=== PATIENT | male | born 1945 | race Caucasian/White ===

== ENCOUNTER 2017-03-28 12:28 | Emergency (ER) | payer MEDICARE ==
[~2017-03-28] VITALS: Ht 147.3 cm; Wt 61.2 kg
--- NOTE | 2017-03-28 12:30 | NUR ---
ARRIVAL PT ARRIVED VIA WHEELCHAIR ACCOMPANIED BY CAREGIVER. PT IS IN NO DISTRESS AT THIS TIME. EDP NOTIFIED OF ARRIVAL.
[2017-03-28] MEDS ORDERED: LASIX IV STA (12:46)
--- NOTE | 2017-03-28 12:48 | ER.PDOC ---
General Chief Complaint: Requesting Medical Care Stated Complaint: SOB Time seen by MD: 12:45 Source: patient Exam Limitations: no limitations History of Present Illness Initial Comments sob Timing/Duration: 1 hour Severity: mild Prior Episodes/Possible Cause: no prior episodes Associated Symptoms: denies symptoms Prior symptoms/Treatment: Similar symptoms previous Allergies: Coded Allergies: Sulfa (Sulfonamide Antibiotics) (Verified Allergy, Unknown, 07/23/14) Family History Significant Family History: no pertinent family hx Review of Systems Constitutional: weakness Respiratory: shortness of breath Cardiovascular: denies chest pain Gastrointestinal: denies abdominal pain Genitourinary: denies discharge All Other Systems: Reviewed and Negative Physical Exam General Appearance: Anxious HEENT: Other (bruising l eye) Neck: Non-Tender, Full Range of Motion, Supple, Normal Inspection Respiratory: no respiratory distress Cardiovascular: Tachycardia Gastrointestinal: Normal Bowel Sounds, No Organomegaly, No Pulsatile Mass, Non Tender, Soft Extremities: Normal Range of Motion, Non-Tender, Normal Inspection, No Pedal Edema, No Calf Tenderness, Normal Capillary Refill 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 NML as Tested, No Motor/Sensory Deficits, Alert, Normal Mood/Affect, Oriented x 3 Skin: Normal Color, Warm/Dry Lymphatic: No Adenopathy Results/Orders Results/Orders Laboratory Tests Test 03/28/17 13:05 White Blood Count 9.7 10^3/uL (4.5-11.0) Red Blood Count 4.21 10^6/uL (4.50-5.90) Hemoglobin 12.5 g/dL (13.9-16.3) Hematocrit 39.9 % (37.0-53.0) Mean Corpuscular Volume 94.8 fL (78-100) Mean Corpuscular Hemoglobin 29.7 pg (26-34) Mean Corpuscular Hemoglobin Concent 31.3 g/dL (33-37) Red Cell Distribution Width 15.0 % (11.5-14.5) Platelet Count 281 10^3/uL (150-400) Mean Platelet Volume 9.5 fL (7.8-11.0) Neutrophils (%) (Auto) 79.3 % (41.0-85.0) Lymphocytes (%) (Auto) 12.0 % (24.0-44.0) Monocytes (%) (Auto) 6.4 % (5.0-12.0) Neutrophils # (Auto) 7.7 10^3/uL (1.8-7.7) Lymphocytes # (Auto) 1.2 10^3/uL (1.0-4.8) Monocytes # (Auto) 0.6 10^3/uL (0.3-0.8) Absolute Immature Granulocyte (auto 0.02 10^3 u/L (0-2) Eosinophils % 1.4 % (0.0-5.0) Basophils % 0.7 % (0.0-0.2) Basophils # 0.1 10^3/uL (0.0-0.1) Eosinophil Count 0.1 10^3/uL (0.0-0.2) Sodium Level 146 mmol/L (132-145) Potassium Level 4.2 mmol/L (3.6-5.2) Chloride Level 108.0 mmol/L (96-109) Carbon Dioxide Level 31.7 mmol/L (20.0-32) Anion Gap 10.5 Blood Urea Nitrogen 33 mg/dL (7-18) Creatinine 1.37 mg/dL (0.59-1.40) Estimated GFR () 61.8 (>/=60) BUN/Creatinine Ratio 24.0 Glucose Level 142 mg/dL (70-110) Calcium Level 9.0 mg/dL (8.4-10.5) Total Bilirubin 0.6 mg/dL (0.2-1.0) Aspartate Amino Transf (AST/SGOT) 58 U/L (0-35) Alanine Aminotransferase (ALT/SGPT) 117 U/L (12-78) Alkaline Phosphatase 126 U/L (50-136) Total Creatine Kinase 102 U/L (39-308) Creatine Kinase MB 1.4 ng/mL (0.5-3.6) Troponin I 0.05 ng/mL (0.00-0.05) Pro-B-Type Natriuretic Peptide 8068 pg/mL (0-125) Total Protein 7.2 g/dL (6.4-8.2) Albumin 3.0 g/dL (3.4-5.0) Globulin 4.2 Percent Immature Gran (Cell Imm) 0.20 % (0.00-0.50) Administered Medications Medications (Trade) Dose Ordered Sig/Isabel Route PRN Reason Start Time Stop Time Status Last Admin Dose Admin Sodium Chloride 1,000 ml @ 0 mls/hr Q0M ONCE IV 03/28/17 13:00 03/28/17 13:01 UNV 03/28/17 13:13 Furosemide (Lasix) 40 mg STAT STAT IV 03/28/17 12:46 03/28/17 12:47 UNV 03/28/17 13:14 Progress Progress bnp= [id number] cardiacs neg EKG/XRAY/CT/US EKG Comments: 104 afib XRAY: chest XRAY Comments: possible infiltrate Departure Time of Disposition: 14:29 Disposition: 01 HOME, SELF-CARE Impression: Primary Impression: Dyspnea Additional Impression: Bronchitis Condition: Stable Additional Instructions: noel calderon Problem Qualifiers ONORM TAYLOR Dr., MD Mar 28, 2017 12:48
[2017-03-28] MEDS ORDERED: NS 1000ML 1,000 ML IV ONE (13:00)
--- NOTE | 2017-03-28 13:03 | DIREP ---
PROCEDURE:CHEST 1 VIEW COMPARISON:[facility], CR, XRAY CHEST 2 VWS, 08/10/2015, 12:19 PM. INDICATIONS:SOB FINDINGS: LUNGS/PLEURA:Relatively shallow lung volumes with increased conspicuity of the bronchovascular structures. Vascular congestion not excluded. Increased density at the left base raises question of infiltrate. Minimal blunting of the left costophrenic angle suggests pleural effusion. VASCULATURE:Within normal limits. CARDIAC:The cardiac silhouette is prominent, but not definitely enlarged, given AP technique. JAMILA/MEDIASTINUM:No visible mass or adenopathy. BONES:No acute fracture. OTHER:No additional findings. CONCLUSION: 1. Increased density at the left base raises question of infiltrate. Minimal blunting of the left costophrenic angle suggests pleural effusion. Dictated by: Fracisco Lo M.D. On 03/28/2017 at 01:00 PM
[2017-03-28] MEDS ORDERED: LASIX ONE (13:04)
[2017-03-28] MEDS ORDERED: NS 1000ML 1,000 ML ONE (13:04)
[2017-03-28 13:11] LABS: BASOPHIL # 0.1 10^3/uL (0.0-0.1); BASOPHIL % 0.7 % (0.0-0.2); EOSINOPHIL # 0.1 10^3/uL (0.0-0.2); EOSINOPHIL % 1.4 % (0.0-5.0); HEMOGLOBIN 12.5 g/dL (13.9-16.3); LYMPHOCYTES # 1.2 10^3/uL (1.0-4.8); MEAN CELL HGB 29.7 pg (26-34); MEAN CELL HGB CONCENTRATION 31.3 g/dL (33-37); MEAN CORP VOLUME 94.8 fL (78-100); MEAN PLATELET VOLUME 9.5 fL (7.8-11.0); MONOCYTES # 0.6 10^3/uL (0.3-0.8); MONOCYTES % 6.4 % (5.0-12.0); NEUTROPHIL # 7.7 10^3/uL (1.8-7.7); NEUTROPHILS % 79.3 % (41.0-85.0); WHITE BLOOD CELL 9.7 10^3/uL (4.5-11.0)
[2017-03-28] MEDS ORDERED: ROCEPHIN 1,000 MG in NS 100ML 100 ML IV STA (13:46)
[2017-03-28 13:49] LABS: CARBON DIOXIDE 31.7 mmol/L (20.0-32)
[2017-03-28] MEDS ORDERED: NS 100ML 100 ML IV ONE (14:41)
[2017-03-28] MEDS ORDERED: ROCEPHIN ONE (14:42)
== END 2017-03-28 15:45 | disposition home or self-care (01) ==
LOC: ER 12:28
DX: J40 Bronchitis, not specified as acute or chronic (principal); R06.00 Dyspnea, unspecified; S05.12XA Contusion of eyeball and orbital tissues, left eye, initial encounter; R53.1 Weakness; Z88.2 Allergy status to sulfonamides; X58.XXXA Exposure to other specified factors, initial encounter; Y93.89 Activity, other specified; Y92.89 Other specified places as the place of occurrence of the external cause; Y99.8 Other external cause status
CPT/HCPCS: 36415; 71010; 80053; 82550; 82553; 83880; 84484; 85025; 85379; 93005; 96361; 96365; 96375; 99285; J0696 ×3; J1940; J7030; J7050

== ENCOUNTER 2018-06-13 21:40 | Inpatient (IN) | payer MEDICARE ==
[~2018-06-13] VITALS: Ht 147.3 cm; Wt 54.9 kg
[2018-06-13 21:53] VITALS: BP 171/84
[2018-06-13] MEDS ORDERED: SOLU-MEDROL IV STA (22:00)
[2018-06-13] MEDS ORDERED: DECADRON IH STA (22:00)
[2018-06-13] MEDS ORDERED: DUONEB 0.5 MG-3 MG/3 ML SOLN IH STA (22:00)
[2018-06-13] MEDS ORDERED: DECADRON ONE (22:02)
[2018-06-13] MEDS ORDERED: DUONEB 0.5 MG-3 MG/3 ML SOLN IH ONE (22:02)
--- NOTE | 2018-06-13 22:10 | ER.PDOC ---
General Chief Complaint: Dyspnea/Respdistress Stated Complaint: FEVER,CONGESTION Time seen by MD: 22:03 Source: other (caregiver) Exam Limitations: clinical condition History of Present Illness Initial Comments 73 year old white male with cough, shortness of breath for two days. +fever and increasing weakness. No nausea, no vomiting Timing/Duration: other (2 days) Severity: moderate Prior Episodes/Possible Cause: no prior episodes Associated Symptoms: cough Allergies: Coded Allergies: Sulfa (Sulfonamide Antibiotics) (Verified Allergy, Unknown, 07/23/14) Uncoded Allergies: CODE (Allergy, Unknown, 06/13/18) Past Medical History Medical History: congestive heart failure, COPD, diabetes Surgical History: no surgical history Social History Smoking: quit greater than 1 year Alcohol Use: none Drug Use: none Review of Systems Constitutional: fever, malaise, weakness EENTM: no symptoms reported Respiratory: see HPI, cough, orthopnea, shortness of breath Cardiovascular: no symptoms reported Gastrointestinal: no symptoms reported Genitourinary: no symptoms reported Musculoskeletal: no symptoms reported Skin: no symptoms reported Psychiatric/Neurological: no symptoms reported Endocrine: no symptoms reported Hematologic/Lymphatic: no symptoms reported Physical Exam General Appearance: No Apparent Distress, Cachetic, Thin HEENT: PERRL/EOMI, Normal ENT Inspection, TMs Normal, Pharynx Normal Neck: Non-Tender, Full Range of Motion, Supple Respiratory: crackles, rales Cardiovascular: Normal Peripheral Pulses, Regular Rate, Rhythm, No Edema, No JVD, No Murmur Gastrointestinal: Normal Bowel Sounds, No Organomegaly, No Pulsatile Mass, Non Tender Extremities: Normal Range of Motion, Non-Tender, Normal Inspection, No Pedal Edema, No Calf Tenderness, Normal Capillary Refill Neurologic/Psychiatric: Other (lethargic) Skin: Normal Color, Warm/Dry Lymphatic: No Adenopathy Results/Orders Results/Orders Laboratory Tests Test 06/13/18 22:20 06/13/18 22:40 White Blood Count 8.1 10^3/uL (4.5-11.0) Red Blood Count 3.67 10^6/uL (4.50-5.90) Hemoglobin 11.3 g/dL (13.9-16.3) Hematocrit 35.9 % (37.0-53.0) Mean Corpuscular Volume 97.8 fL (78-100) Mean Corpuscular Hemoglobin 30.8 pg (26-34) Mean Corpuscular Hemoglobin Concent 31.5 g/dL (33-37) Red Cell Distribution Width 16.3 % (11.5-14.5) Platelet Count 248 10^3/uL (150-400) Mean Platelet Volume 8.9 fL (7.8-11.0) Neutrophils (%) (Auto) 87.1 % (41.0-85.0) Lymphocytes (%) (Auto) 6.3 % (24.0-44.0) Monocytes (%) (Auto) 5.8 % (5.0-12.0) Neutrophils # (Auto) 7.0 10^3/uL (1.8-7.7) Lymphocytes # (Auto) 0.5 10^3/uL (1.0-4.8) Monocytes # (Auto) 0.5 10^3/uL (0.3-0.8) Absolute Immature Granulocyte (auto 0.01 10^3 u/L (0-2) Eosinophils % 0.0 % (0.0-5.0) Basophils % 0.7 % (0.0-0.2) Basophils # 0.1 10^3/uL (0.0-0.1) Eosinophil Count 0.0 10^3/uL (0.0-0.2) Prothrombin Time 11.0 SEC (9.8-11.9) Prothrombin Time INR (Non-Therap) 1.1 Activated Partial Thromboplast Time 34.2 SEC (24.67-30.72) Sodium Level 140 mmol/L (132-145) Potassium Level 4.0 mmol/L (3.6-5.2) Chloride Level 103.0 mmol/L (96-109) Carbon Dioxide Level 28.4 mmol/L (20.0-32) Anion Gap 12.6 Blood Urea Nitrogen 27 mg/dL (7-18) Creatinine 1.37 mg/dL (0.59-1.40) Estimated GFR () 61.5 (>/=60) BUN/Creatinine Ratio 19.0 Glucose Level 142 mg/dL (70-110) Calcium Level 9.1 mg/dL (8.4-10.5) Total Bilirubin 0.2 mg/dL (0.2-1.0) Aspartate Amino Transf (AST/SGOT) 25 U/L (0-35) Alanine Aminotransferase (ALT/SGPT) 22 U/L (12-78) Alkaline Phosphatase 84 U/L (50-136) Total Creatine Kinase 66 U/L (39-308) Troponin I 0.09 ng/mL (0.00-0.05) Pro-B-Type Natriuretic Peptide 88512 pg/mL (0-125) Total Protein 7.4 g/dL (6.4-8.2) Albumin 2.9 g/dL (3.4-5.0) Globulin 4.5 Percent Immature Gran (Cell Imm) 0.10 % (0.00-0.50) Differential Total Cells Counted 100 #CELLS Segmented Neutrophils 71 % (31-76) Band Neutrophils 15 % (2-6) Lymphocytes 6 % (25-36) Monocytes 2 % (3-9) Absolute Eosinophils (Manual) 2 % (1-4) Atypical Lymphocytes 4 % Administered Medications Medications (Trade) Dose Ordered Sig/Isabel Route PRN Reason Start Time Stop Time Status Last Admin Dose Admin Methylprednisolone Sodium Succinate (Solu-Medrol) 125 mg STAT STAT IV 06/13/18 22:00 06/13/18 22:03 DC 06/13/18 22:36 Albuterol/ Ipratropium (Duoneb 0.5 Mg-3 Mg/3 ml Soln) 3 ml STAT STAT IH 06/13/18 22:00 06/13/18 22:03 DC 06/13/18 22:11 Dexamethasone Sodium Phosphate (Decadron) 4 mg STAT STAT IH 06/13/18 22:00 06/13/18 22:03 DC 06/13/18 22:11 Ceftriaxone Sodium 1000 mg/ Sodium Chloride 100 ml @ 100 mls/hr OT STAT IV 06/13/18 22:46 06/13/18 23:45 06/13/18 22:52 Progress Progress lab reviewed with patient EKG/XRAY/CT/US EKG Comments: new onset atrial fibrillation Departure Time of Disposition: 23:28 Disposition: 09 ADMITTED INPATIENT Impression: Primary Impression: Congestive heart failure Additional Impression: Chronic obstructive pulmonary disease Condition: Stable Referrals: PCP,UNKNOWN (PCP) PRIMARY CARE PROVIDER Comments Admit Duration or Time Spent with Pa: 60 Problem Qualifiers Primary Impression: Congestive heart failure Heart failure type: systolic Heart failure chronicity: acute on chronic Qualified Codes: I50.23 - Acute on chronic systolic (congestive) heart failure Additional Impression: Chronic obstructive pulmonary disease COPD type: COPD with acute exacerbation Qualified Codes: J44.1 - Chronic obstructive pulmonary disease with (acute) exacerbation JON TOMLINSON MD Jun 13, 2018 22:10
--- NOTE | 2018-06-13 22:17 | PCM.EKG ---
[facility] Test Date: 2018-06-13 Test Time: 22:16:58 Pat Name: ALEXANDRE ORTIZ Department: Room: Gender: M Disability Examiner: HERNANDO : 1945 Requested By: JON TOMLINSON Order Number: [id number] Reading MD: Measurements Intervals [place] Rate: 108 P: TN: QRS: 35 QRSD: 90 T: 96 QT: 356 QTc: 477 Interpretive Statements Atrial fibrillation ST & T wave abnormality, consider lateral ischemia or digitalis effect Abnormal ECG No previous ECG available for comparison Please click the below link to view image of tracing.
[2018-06-13] MEDS ORDERED: SOLU-MEDROL ONE (22:29)
[2018-06-13 22:30] LABS: BASOPHIL # 0.1 10^3/uL (0.0-0.1); BASOPHIL % 0.7 % (0.0-0.2); HEMOGLOBIN 11.3 g/dL (13.9-16.3); LYMPHOCYTES # 0.5 10^3/uL (1.0-4.8); LYMPHOCYTES % 6.3 % (24.0-44.0); MEAN CELL HGB 30.8 pg (26-34); MEAN CELL HGB CONCENTRATION 31.5 g/dL (33-37); MEAN CORP VOLUME 97.8 fL (78-100); MEAN PLATELET VOLUME 8.9 fL (7.8-11.0); MONOCYTES # 0.5 10^3/uL (0.3-0.8); MONOCYTES % 5.8 % (5.0-12.0); NEUTROPHILS % 87.1 % (41.0-85.0); RED CELL DISTRIBUTION WIDTH 16.3 % (11.5-14.5); WHITE BLOOD CELL 8.1 10^3/uL (4.5-11.0)
--- NOTE | 2018-06-13 22:32 | DIREP ---
PROCEDURE:CHEST 1 VIEW COMPARISON:[facility], CR, XRAY CHEST SINGLE VW, 03/28/2017, 12:57 PM. INDICATIONS:shortness of breath FINDINGS: LUNGS/PLEURA:There are interstitial changes bilaterally with scattered hazy airspace changes bilaterally. More confluent density at the left base. Small left pleural effusion is possible. VASCULATURE:Within normal limits. CARDIAC:No cardiomegaly. JAMILA/MEDIASTINUM:No visible mass or adenopathy. BONES:No acute fracture. OTHER:No additional findings. CONCLUSION: 1. Findings are suspicious for acute pneumonia/pneumonitis. Dictated by: Fracisco Lo M.D. on 06/13/2018 at 10:30 PM
[2018-06-13 22:45] VITALS: BP 160/85
[2018-06-13] MEDS ORDERED: ROCEPHIN 1,000 MG in NS 100ML 100 ML IV STA (22:46)
[2018-06-13] MEDS ORDERED: ROCEPHIN ONE (22:50)
[2018-06-13] MEDS ORDERED: NS 100ML 100 ML IV ONE (22:50)
[2018-06-13 22:53] LABS: CALCIUM 9.1 mg/dL (8.4-10.5); CARBON DIOXIDE 28.4 mmol/L (20.0-32)
[2018-06-13 23:07] LABS: BAND NEUTROPHILS 15 % (2-6); EOSINOPHIL 2 % (1-4); LYMPHOCYTE 6 % (25-36); MONOCYTE 2 % (3-9); SEGMENTED NEUTROPHILS 71 % (31-76)
[2018-06-13 23:29] LABS: ABG PCO2 38.9 mmHg (35.0-45.0); ABG PH 7.415 (7.350-7.450); HCO3act 24.4 mmol/L (22.0-26.0); pO2 50.5 mmHg (75.0-100.0)
[2018-06-13] MEDS ORDERED: LASIX IV STA (23:30)
[2018-06-13] MEDS ORDERED: LISI40TA PO (23:31)
[2018-06-13] MEDS ORDERED: METO-237 PO (23:31)
[2018-06-13] MEDS ORDERED: OXYB5TAB7 PO (23:31)
[2018-06-13] MEDS ORDERED: APIX5TAB PO (23:31)
[2018-06-13] MEDS ORDERED: FURO40TA4 PO (23:31)
[2018-06-13] MEDS ORDERED: IPRA12.9 IH (23:31)
[2018-06-13] MEDS ORDERED: CHOL500045 PO (23:31)
[2018-06-13] MEDS ORDERED: FLUT1DIS3 IH (23:31)
[2018-06-13] MEDS ORDERED: PRAV20TA PO (23:31)
[2018-06-13] MEDS ORDERED: TERA2CAP3 PO (23:31)
[2018-06-13] MEDS ORDERED: FLUO10CA7 PO (23:31)
[2018-06-13] MEDS ORDERED: METF10007 PO (23:31)
[2018-06-13] MEDS ORDERED: FLUT16SP (23:31)
--- NOTE | 2018-06-13 23:34 | NUR ---
LACTIC ACID LACTIC ACID 2.1 PATIENT BEING ADMITTED TO MED SURG. DR. TOMLINSON REPORTS NO NEED FOR ANOTHER REPEAT LACTIC ACID.
[2018-06-13 23:45] VITALS: BP 146/90
--- NOTE | 2018-06-13 23:50 | NUR ---
BM PATIENT HAD BM REMOVED PANTS AND BRIEF AND CLEANED PATIENT. LARGE SOFT BROWN STOOL.
[2018-06-14] MEDS ORDERED: LASIX ONE (00:11)
[2018-06-14 00:15] VITALS: BP 163/81
--- NOTE | 2018-06-14 00:30 | NUR ---
ADMIT PATIENT TAKEN TO ROOM 328 VIA WHEELCHAIR CAREGIVER PRESENT. TRANSFERRED TO BED AND POSITIONED FOR COMFORT. UGALDE TO GRAVITY. REPORT GIVEN TO ELA DHILLON RELINQUISHED CARE.
[2018-06-14 00:54] LABS: BILIRUBIN,URINE NEGATIVE (NEGATIVE); UROBILINOGEN,URINE NORMAL (NEGATIVE)
[2018-06-14 01:04] LABS: APPEARANCE,URINE CLOUDY (CLEAR); UA COLOR YELLOW (YELLOW)
--- NOTE | 2018-06-14 01:43 | NUR ---
Pt admitted to MS via @ 0039. Pt and family oriented to room and floor. Vitals obtained. Admission assessment completed and charted. Tele #1 placed on pt. No complaints of pain or discomfort voiced. Call light with in reach.
[2018-06-14] MEDS: DUONEB 0.5 MG-3 MG/3 ML SOLN IH SCH ×4 (02:34→21:56)
--- NOTE | 2018-06-14 02:45 | NUR ---
Pt's gown and pad was wet. Pagan cath leaking. @cc inserted into bulb
[2018-06-14 04:45] VITALS: BP 142/79
--- NOTE | 2018-06-14 04:55 | NUR ---
Pt attempting to get out of bed. Pt repositioned for comfort. No further leaking noted from louis cath. Call light with in reach. Bed alarm active
[2018-06-14] MEDS: SOLU-MEDROL IV SCH ×2 (05:25→06:00)
[2018-06-14] MEDS ORDERED: DUONEB 0.5 MG-3 MG/3 ML SOLN IH SCH (06:00)
--- NOTE | 2018-06-14 06:41 | PCM.HP ---
History of Present Illness History of Present Illness 73-year-old male with past medical history of chronic systolic CHF, COPD, and diabetes mellitus who lives at home but has a 24-hour marketing director assisted living. He presented to the ER with a 2 day duration of cough and shortness of breath associated with fever and weakness. He denied any nausea or vomiting. Chest x-ray done in the ER was concerning for possible pneumonia. However patient did have a proBNP level of more than 50,000. He sounded very coarse with his breath sounds. The ER called me to admit the patient for treatment of pneumonia and possible CHF. At the time of my evaluation, the patient was already in the yoder asleep. He had received Lasix in the ER with achievement of good diuresis. He appears to feel better now. Nursing tells me that he was confused and had tried to pull out his louis. However he is calm now. His marketing director assisted living has gone home. Allergies: Sulfa Past medical history: CHF, COPD, and diabetes, Past surgical history: None Family history history: Patient smokes. However he quit about a year ago. Denies alcohol Denies street drugs Patient believes here in [place] alone, but has a marketing director assisted living that takes care of him 24 hours. Travel Hx EBOLA RISK:Travel to/contact w: No Is pt experiencing any Ebola s: No Review of Systems Constitutional: Fever, Chills; No: Sweats, Weakness, Malaise Eyes: No: Pain, Vision change, Conjunctivae inflammation, Eyelid inflammation, Redness ENT: No: Ear pain, Ear discharge, Nose pain, Nose discharge, Nose congestion, Mouth pain, Mouth swelling, Throat pain, Throat swelling, Other Respiratory: Cough, Shortness of breath; No: Dry, Wheezing, Hemoptysis, Pleuritic Pain, Sputum Cardiovascular: No: Chest Pain, Palpitations, Orthopnea, Paroxysmal Noc. Dyspnea, Edema, Lt Headedness Gastrointestinal: No: Nausea, Vomiting, Abdominal Pain, Diarrhea, Constipation , Melena, Hematochezia Genitourinary: No Dysuria, No Frequency, No Incontinence, No Hematuria, No Retention Musculoskeletal: No: neck pain, shoulder pain, arm pain, back pain, hand pain, leg pain, foot pain Skin: No: Rash, Lesions, Jaundice, Bruising Neurological: Confusion; No: Weakness, Numbness, Incoordination, Change in speech, Seizures Allergies: Coded Allergies: Sulfa (Sulfonamide Antibiotics) (Verified Allergy, Unknown, 07/23/14) codeine (Verified Allergy, Unknown, 06/14/18) Scheduled Apixaban (Eliquis), 5 MG PO DAILY24, (Reported) Cholecalciferol (Vitamin D3) (Vitamin D), 5,000 UNIT PO Q7D, (Reported) Fluoxetine Hcl (Fluoxetine Hcl), 1 CAP PO DAILY, (Reported) Fluticasone/Salmeterol (Advair 250-50 Diskus), 1 PUFF IH BID, (Reported) Furosemide (Furosemide), 1 TAB PO PRN, (Reported) Lisinopril (Lisinopril), 1 TAB PO DAILY, (Reported) Metformin Hcl (Metformin Hcl), 1 TAB PO BID, (Reported) Metoprolol Succinate (Metoprolol Succinate), 1 TAB PO DAILY, (Reported) Oxybutynin Chloride (Oxybutynin Chloride), 1 TAB PO BID, (Reported) Pravastatin Sodium (Pravachol), 1 TAB PO HS, (Reported) Terazosin Hcl (Terazosin Hcl), 0.5 CAP PO HS, (Reported) Scheduled PRN Fluticasone Propionate (Fluticasone Propionate), 1 SPR NA HS PRN for CONGESTION, (Reported) Ipratropium [place] (Atrovent Hfa), 2 PUFF IH Q6HR PRN for SHORTNESS OF BREATH, (Reported) VTE VTE Risk Total Score: >5 VTE Risk Score VTE Risk: Score 0-1 = Low Risk (Aggressive mobilization; early ambulation; no VTE prophylaxis required) Score 2: Moderate Risk (Intermittent/Pneumatic Compression Device OR Lovenox/Heparin/Coumadin) Score 3-4: High Risk (Intermittent/Pneumatic Compression Device AND Lovenox/Heparin/Coumadin) Score > or =5: Highest Risk (Intermittent/Pneumatic Compression Device AND Lovenox/Heparin/Coumadin) VTE VTE Present on Admission: No Currently receiving anticoagul: Yes VTE Risk Total Score: >5 Exam Vital Signs Vital Signs Date Time Temp Pulse Resp B/P (MAP) Pulse Ox O2 Delivery O2 Flow Rate FiO2 06/14/18 04:45 98.8 99 20 142/79 (100) 91 Nasal [place]ula 2.00 98.8 Current Medications Medications (Trade) Dose Ordered Sig/Isabel PRN Reason Start Time Stop Time Status Last Admin Albuterol/ Ipratropium (Duoneb 0.5 Mg-3 Mg/3 ml Soln) 3 ml RTQ6 06/14/18 03:00 07/14/18 02:59 06/14/18 02:34 Methylprednisolone Sodium Succinate (Solu-Medrol) 60 mg Q8HR 06/14/18 05:00 06/15/18 11:00 06/14/18 05:25 Vital Signs Date Time Temp Pulse Resp B/P (MAP) Pulse Ox O2 Delivery O2 Flow Rate FiO2 06/14/18 04:45 98.8 99 20 142/79 (100) 91 Nasal [place] 2.00 98.8 Allergies Coded Allergies Sulfa (Sulfonamide Antibiotics) (Verified Allergy, Unknown, 07/23/14) codeine (Verified Allergy, Unknown, 06/14/18) I & O 06/13/18 21:40 Thru 06/14/18 03:25 Output Total 900 ml Balance -900 ml Current Medications Medications (Trade) Dose Ordered Sig/Isabel Route Start Time Stop Time Status Last Admin Dose Admin Methylprednisolone Sodium Succinate (Solu-Medrol) 125 mg STAT STAT IV 06/13/18 22:00 06/13/18 22:03 DC 06/13/18 22:36 Albuterol/ Ipratropium (Duoneb 0.5 Mg-3 Mg/3 ml Soln) 3 ml STAT STAT IH 06/13/18 22:00 06/13/18 22:03 DC 06/13/18 22:11 Dexamethasone Sodium Phosphate (Decadron) 4 mg STAT STAT IH 06/13/18 22:00 06/13/18 22:03 DC 06/13/18 22:11 Ceftriaxone Sodium 1000 mg/ Sodium Chloride 100 ml @ 100 mls/hr OT STAT IV 06/13/18 22:46 06/13/18 23:45 DC 06/13/18 22:52 Methylprednisolone Sodium Succinate (Solu-Medrol) 60 mg Q8HR IV 06/14/18 05:00 06/15/18 11:00 06/14/18 05:25 Furosemide (Lasix) 40 mg STAT STAT IV 06/13/18 23:30 06/13/18 23:36 DC 06/14/18 00:11 Albuterol/ Ipratropium (Duoneb 0.5 Mg-3 Mg/3 ml Soln) 3 ml RTQ6 IH 06/14/18 03:00 07/14/18 02:59 06/14/18 02:34 Laboratory Tests 06/13/18 21:54: Blood Gas Sample Site RT RADIAL ARTERY, Blood Gas pH 7.415, Blood Gas PCO2 38.9 , Blood Gas PO2 50.5L, Blood Gas HCO3 24.4, Blood Gas Base Excess 0.0, Ben Test POSITIVE, Arterial Blood Oxygen Saturation 83.9L, Deoxyhemoglobin 15.9H, Carboxyhemoglobin 1.0, Methemoglobin 0.4, Total Hemoglobin 12.0L, Total Oxygen Concentration 14.0, Lactic Acid (Blood Gas) 2.1*H, Oxygen Delivery Method (LAB) RA, FiO2 21, Bicarbonate 25.6 06/13/18 22:20: White Blood Count 8.1, Red Blood Count 3.67L, Hemoglobin 11.3L, Hematocrit 35.9L , Mean Corpuscular Volume 97.8, Mean Corpuscular Hemoglobin 30.8, Mean Corpuscular Hemoglobin Concent 31.5L, Red Cell Distribution Width 16.3H, Platelet Count 248, Mean Platelet Volume 8.9, Neutrophils (%) (Auto) 87.1H, Lymphocytes (%) (Auto) 6.3*L, Monocytes (%) (Auto) 5.8, Neutrophils # (Auto) 7.0 , Lymphocytes # (Auto) 0.5L, Monocytes # (Auto) 0.5, Absolute Immature Granulocyte (auto 0.01, Eosinophils % 0.0, Basophils % 0.7H, Basophils # 0.1, Eosinophil Count 0.0, Prothrombin Time 11.0, Prothrombin Time INR (Non-Therap) 1.1, Activated Partial Thromboplast Time 34.2, Sodium Level 140, Potassium Level 4.0, Chloride Level 103.0, Carbon Dioxide Level 28.4, Anion Gap 12.6, Blood Urea Nitrogen 27H, Creatinine 1.37, Estimated GFR () 61.5 , BUN/Creatinine Ratio 19.0, Glucose Level 142H, Calcium Level 9.1, Total Bilirubin 0.2, Aspartate Amino Transf (AST/SGOT) 25, Alanine Aminotransferase ( ALT/SGPT) 22, Alkaline Phosphatase 84, Total Creatine Kinase 66, Troponin I 0.09H, Pro-B-Type Natriuretic Peptide 20966X, Total Protein 7.4, Albumin 2.9L, Globulin 4.5, Percent Immature Gran (Cell Imm) 0.10 06/13/18 22:40: Differential Total Cells Counted 100, Segmented Neutrophils 71, Band Neutrophils 15H, Lymphocytes 6L, Monocytes 2L, Absolute Eosinophils (Manual) 2, Atypical Lymphocytes 4 06/14/18 00:48: Urine Collection Type CCMS, Urine Color YELLOW, Urine Appearance CLOUDYH, Urine Bilirubin NEGATIVE, Urine Ketones NEGATIVE, Urine Specific [place] 1.020, Urine pH 5, Urine Protein 100 mg/dLH, Urine Urobilinogen NORMAL, Urine Nitrate NEGATIVE, Urine Leukocyte Esterase NEGATIVE, Urine Blood 150 3+H, Urine RBC NONE SEEN, Urine WBC 0-2, Urine Squamous Epithelial Cells FEW, Urine Amorphous Sediment LARGE, Urine Bacteria RARE, Urine Glucose NORMAL PATIENT NAME: ALEXANDRE ORTIZ MR#: [id number] : 1945 LOCATION: ER ROOM#: BED: SEX: M AGE: 73 SERVICE DATE: 06/13/182139 ORDERING PHYSICIAN: JON TOMLINSON MD RAD#: [id number] ACCESSION NUMBER(s): [id number] PROCEDURE: XR CHEST 1V EXAM DATE: 06/13/182202 cc: FRACISCO LO MD; JON TOMLINSON MD / CC: FRACISCO LO MD; JON TOMLINSON MD PROCEDURE:CHEST 1 VIEW COMPARISON:[facility], CR, XRAY CHEST SINGLE VW, 03/28/2017, 12:57 PM. INDICATIONS:shortness of breath FINDINGS: LUNGS/PLEURA:There are interstitial changes bilaterally with scattered hazy airspace changes bilaterally. More confluent density at the left base. Small left pleural effusion is possible. VASCULATURE:Within normal limits. CARDIAC:No cardiomegaly. JAMILA/MEDIASTINUM:No visible mass or adenopathy. BONES:No acute fracture. OTHER:No additional findings. CONCLUSION: 1. Findings are suspicious for acute pneumonia/pneumonitis. Dictated by: Fracisco Lo M.D. on 06/13/2018 at 10:30 PM General Appearance: Alert, No acute distress, mild distress HEENT: Atraumatic, PERRLA Respiratory: Other (Harsh breath sounds in joelle lungs) Cardiovascular: Regular rate, Normal S1, Normal S2 Abdominal: Normal bowel sounds, Soft, No tenderness Extremities: No clubbing, No edema Skin: No rash, No lesions Neuro: Normal speech, Other (confused) Assessment/Plan Assessment/Plan Assessment/Plan Present word pneumonia Acute on chronic systolic CHF History of COPD Diabetes mellitus Mild normocytic anemia 11.3 Lymphopenia 6.3 Hyperglycemia 142 ProBNP 52,118 Slightly elevated troponin 0.09 Hypoalbuminemia 2.9 Patient History: Throat cancer 32 FATHER Unknown Plan Admit patient to general medical floor. I agree with coverage for community acquired pneumonia with Rocephine and Zithromax. Mucinex, DuoNeb's, oxygen when necessary Follow Blood and Ur cx done in the ED Lasix 40 mg IV twice a day The patient received Solu-Medrol 125 mg in the ER. We'll go ahead and do two more doses of Solu-Medrol and stop, wheezing not a major component of this presentation. I agree with placement of Louis for monitoring of intake and outputs. Hyperglycemic protocol. A1C in the am Rechk ProBNP tmr and consider decreasing lasix dosing tmr GI prophylaxis DVT prophylaxis. ANA YOUNG DO Jun 14, 2018 06:41
[2018-06-14] MEDS ORDERED: ZOFRAN IV PRN (07:30)
[2018-06-14] MEDS ORDERED: DUONEB 0.5 MG-3 MG/3 ML SOLN IH PRN (07:30)
[2018-06-14] MEDS ORDERED: ZITHROMAX 500 MG in NS 250ML 250 ML IV ONE (07:30)
[2018-06-14] MEDS: HUMULIN R SQ SCH ×3 (07:30→20:46)
[2018-06-14] MEDS ORDERED: ROCEPHIN 1,000 MG in NS 100ML 100 ML IV SCH ×2 (07:30→21:00)
[2018-06-14] MEDS ORDERED: DEXTROSE 50%-WATER SYRINGE IV PRN (07:30)
[2018-06-14] MEDS ORDERED: VITAMIN D PO SCH (07:30)
[2018-06-14] MEDS ORDERED: NS 100ML 100 ML IV ONE (07:38)
[2018-06-14] MEDS: ELIQUIS PO SCH ×2 (07:44→08:40)
[2018-06-14] MEDS: MUCINEX PO SCH ×2 (08:39→20:55)
[2018-06-14] MEDS: PROZAC PO SCH (08:39)
[2018-06-14] MEDS: TOPROL XL PO SCH (08:39)
[2018-06-14] MEDS: PROTONIX PO SCH (08:40)
[2018-06-14] MEDS: DITROPAN PO SCH ×2 (08:40→20:55)
[2018-06-14] MEDS ORDERED: SOLU-MEDROL IV SCH (09:00)
[2018-06-14] MEDS ORDERED: LOVENOX SQ SCH (09:00)
[2018-06-14 09:10] VITALS: BP 159/85
[2018-06-14] MEDS: LASIX IV SCH (10:00)
[2018-06-14 15:17] VITALS: BP 142/74
[2018-06-14 19:16] VITALS: BP 131/68
--- NOTE | 2018-06-14 19:36 | NUR ---
report received report from offgoing shift
[2018-06-14] MEDS: LIPITOR PO SCH (20:55)
[2018-06-14] MEDS: HYTRIN PO SCH (20:55)
[2018-06-15] VITALS (22 sets, daily range): BP systolic 127–172; BP diastolic 58–112
[2018-06-15] MEDS: DUONEB 0.5 MG-3 MG/3 ML SOLN IH SCH ×4 (03:36→21:18)
[2018-06-15 05:59] LABS: HEMOGLOBIN 10.5 g/dL (13.9-16.3); LYMPHOCYTES # 0.6 10^3/uL (1.0-4.8); MEAN CELL HGB 30.3 pg (26-34); MEAN CELL HGB CONCENTRATION 31.4 g/dL (33-37); MEAN CORP VOLUME 96.5 fL (78-100); MEAN PLATELET VOLUME 9.3 fL (7.8-11.0); MONOCYTES # 0.6 10^3/uL (0.3-0.8); MONOCYTES % 3.8 % (5.0-12.0); NEUTROPHIL # 13.9 10^3/uL (1.8-7.7); RED CELL DISTRIBUTION WIDTH 15.7 % (11.5-14.5); WHITE BLOOD CELL 15.1 10^3/uL (4.5-11.0)
[2018-06-15 06:43] LABS: CALCIUM 8.4 mg/dL (8.4-10.5); CARBON DIOXIDE 30.4 mmol/L (20.0-32)
[2018-06-15] MEDS: HUMULIN R SQ SCH ×4 (07:30→21:00)
[2018-06-15 08:10] LABS: BAND NEUTROPHILS 16 % (2-6); LYMPHOCYTE 3 % (25-36); SEGMENTED NEUTROPHILS 76 % (31-76)
[2018-06-15 08:11] LABS: EOSINOPHIL 1 % (1-4); MONOCYTE 3 % (3-9)
[2018-06-15] MEDS: TOPROL XL PO SCH (08:23)
[2018-06-15] MEDS: PROZAC PO SCH (08:24)
[2018-06-15] MEDS: MUCINEX PO SCH ×2 (08:24→21:00)
[2018-06-15] MEDS: LASIX IV SCH (08:24)
[2018-06-15] MEDS: PROTONIX PO SCH (08:24)
[2018-06-15] MEDS: DITROPAN PO SCH ×2 (08:24→21:00)
[2018-06-15] MEDS ORDERED: ZITHROMAX PO SCH (09:00)
[2018-06-15] MEDS ORDERED: ROCEPHIN 1,000 MG in NS 100ML 100 ML IV SCH (10:00)
[2018-06-15] MEDS ORDERED: NS 100ML 100 ML IV ONE ×2 (10:23→23:10)
[2018-06-15] MEDS ORDERED: POTASSIUM CHLORIDE PO STA (13:58)
[2018-06-15] MEDS ORDERED: BUMINATE 25% IV STA (13:59)
[2018-06-15] MEDS ORDERED: KLOR-CON 10 PO SCH (14:00)
--- NOTE | 2018-06-15 14:12 | PRM.PN ---
Subjective Subjective Date: Jun 15, 2018 Time: 14:05 Subjective Patient is seen in the yoder resting quietly in bed watching TV. His boiler mechanic was at his bedside. Patient says he feels a lot better. He was able to dump about 1500 mL of urine in the past 3 hours. However patient urine remains christopher colored. Patient has no new complaints today. He continues to wheeze slightly in joelle lungs Patient History: Throat cancer 32 FATHER Unknown Objective Vitals and I/O Vital Sign - Last 24 Hours 06/14/18 06/14/18 06/14/18 06/14/18 15:03 15:10 15:17 19:16 Temp 97.8 97.8 Pulse 86 85 86 75 Resp 24 24 14 18 B/P (MAP) 142/74 (96) 131/68 (89) Pulse Ox 98 97 99 97 O2 Delivery Nasal Canula Nasal Canula O2 Flow Rate 2.50 2.00 06/14/18 06/14/18 06/14/18 06/14/18 19:56 21:56 21:57 22:00 Pulse 79 79 81 Resp 16 16 16 Pulse Ox 96 96 97 O2 Delivery Nasal Cannula Nasal Cannula O2 Flow Rate 2.00 2.00 FiO2 28 06/15/18 06/15/18 06/15/18 06/15/18 00:00 03:38 03:42 04:12 Temp 97.8 97.9 97.8 97.9 Pulse 111 90 92 96 Resp 18 B/P (MAP) 141/58 (85) 127/60 (82) Pulse Ox 94 97 99 100 O2 Delivery Nasal Canula Nasal Canula O2 Flow Rate 2.00 2.00 06/15/18 06/15/18 06/15/18 06/15/18 07:30 07:30 08:23 08:24 Temp 97.8 97.8 Pulse 90 90 Resp 18 B/P (MAP) 145/80 (101) 145/80 145/80 Pulse Ox 100 O2 Delivery Nasal Cannula Nasal Canula O2 Flow Rate 2.00 2.00 06/15/18 06/15/18 06/15/18 06/15/18 09:33 09:35 09:35 10:20 Pulse 90 90 90 90 Resp 18 18 18 Pulse Ox 100 100 100 100 O2 Delivery Nasal Cannula Nasal Cannula O2 Flow Rate 2.00 1.00 FiO2 28 18 13:12 Temp 98.8 98.8 Pulse 82 Resp 18 B/P (MAP) 143/62 (89) Pulse Ox 95 O2 Delivery Nasal Canula O2 Flow Rate 2.00 Intake and Output 06/14/18 06/14/18 06/15/18 15:00 23:00 07:00 Intake Total 250 ml 250 ml Output Total 720 ml 240 ml Balance -470 ml 10 ml Laboratory Tests Test 06/15/18 05:35 06/15/18 07:06 White Blood Count 15.1 10^3/uL Red Blood Count 3.46 10^6/uL Hemoglobin 10.5 g/dL Hematocrit 33.4 % Mean Corpuscular Volume 96.5 fL Mean Corpuscular Hemoglobin 30.3 pg Mean Corpuscular Hemoglobin Concent 31.4 g/dL Red Cell Distribution Width 15.7 % Platelet Count 243 10^3/uL Mean Platelet Volume 9.3 fL Neutrophils (%) (Auto) 92.0 % Lymphocytes (%) (Auto) 4.0 % Monocytes (%) (Auto) 3.8 % Neutrophils # (Auto) 13.9 10^3/uL Lymphocytes # (Auto) 0.6 10^3/uL Monocytes # (Auto) 0.6 10^3/uL Absolute Immature Granulocyte (auto 0.03 10^3 u/L Eosinophils % 0.0 % Basophils % 0.0 % Basophils # 0.0 10^3/uL Eosinophil Count 0.0 10^3/uL Sodium Level 139 mmol/L Potassium Level 3.2 mmol/L Chloride Level 101.0 mmol/L Carbon Dioxide Level 30.4 mmol/L Anion Gap 10.8 Blood Urea Nitrogen 34 mg/dL Creatinine 1.28 mg/dL Estimated GFR () 66.5 BUN/Creatinine Ratio 26.0 Glucose Level 98 mg/dL Calcium Level 8.4 mg/dL Total Bilirubin 0.3 mg/dL Aspartate Amino Transf (AST/SGOT) 25 U/L Alanine Aminotransferase (ALT/SGPT) 20 U/L Alkaline Phosphatase 64 U/L Pro-B-Type Natriuretic Peptide 98256 pg/mL Total Protein 6.9 g/dL Albumin 2.5 g/dL Globulin 4.4 Percent Immature Gran (Cell Imm) 0.20 % Differential Total Cells Counted 100 #CELLS Segmented Neutrophils 76 % Band Neutrophils 16 % Lymphocytes 3 % Monocytes 3 % Absolute Eosinophils (Manual) 1 % Atypical Lymphocytes 1 % Current Medications Medications (Trade) Dose Ordered Sig/Isabel Route PRN Reason Start Time Stop Time Status Last Admin Dose Admin Methylprednisolone Sodium Succinate (Solu-Medrol) 125 mg STAT STAT IV 06/13/18 22:00 06/13/18 22:03 DC 06/13/18 22:36 Albuterol/ Ipratropium (Duoneb 0.5 Mg-3 Mg/3 ml Soln) 3 ml STAT STAT IH 06/13/18 22:00 06/13/18 22:03 DC 06/13/18 22:11 Dexamethasone Sodium Phosphate (Decadron) 4 mg STAT STAT IH 06/13/18 22:00 06/13/18 22:03 DC 06/13/18 22:11 Albuterol/ Ipratropium (Duoneb 0.5 Mg-3 Mg/3 ml Soln) 3 ml STK-MED ONCE IH 06/13/18 22:02 06/13/18 22:04 DC Dexamethasone Sodium Phosphate (Decadron) 4 mg STK-MED ONCE .ROUTE 06/13/18 22:02 06/13/18 22:04 DC Methylprednisolone Sodium Succinate (Solu-Medrol) 125 mg STK-MED ONCE .ROUTE 06/13/18 22:29 06/13/18 22:31 DC Ceftriaxone Sodium 1000 mg/ Sodium Chloride 100 ml @ 100 mls/hr OT STAT IV 06/13/18 22:46 06/13/18 23:45 DC 06/13/18 22:52 Sodium Chloride 100 ml @ ud STK-MED ONCE IV 06/13/18 22:50 06/13/18 22:52 DC Ceftriaxone Sodium (Rocephin) 1,000 mg STK-MED ONCE .ROUTE 06/13/18 22:50 06/13/18 22:52 DC Methylprednisolone Sodium Succinate (Solu-Medrol) 60 mg Q8HR IV 06/14/18 05:00 06/14/18 07:12 DC 06/14/18 05:25 Albuterol/ Ipratropium (Duoneb 0.5 Mg-3 Mg/3 ml Soln) 3 ml RTQ6 IH 06/14/18 06:00 06/14/18 06:00 DC Furosemide (Lasix) 40 mg STAT STAT IV 06/13/18 23:30 06/13/18 23:36 DC 06/14/18 00:11 Albuterol/ Ipratropium (Duoneb 0.5 Mg-3 Mg/3 ml Soln) 3 ml RTQ6 IH 06/14/18 03:00 07/14/18 02:59 06/15/18 09:33 Furosemide (Lasix) 40 mg STK-MED ONCE .ROUTE 06/14/18 00:11 06/14/18 00:13 DC Methylprednisolone Sodium Succinate (Solu-Medrol) 40 mg Q12HR IV 06/14/18 09:00 06/16/18 09:01 06/14/18 09:11 Acetaminophen (Tylenol) 1,000 mg Q6H PRN PO PAIN MILD 06/14/18 07:30 07/14/18 07:29 Ondansetron HCl (Zofran) 4 mg Q4H PRN IV NAUSEA / VOMITING 06/14/18 07:30 07/14/18 07:29 Pantoprazole Sodium (Protonix) 40 mg DAILY PO 06/14/18 09:00 07/14/18 08:59 06/15/18 08:24 Albuterol/ Ipratropium (Duoneb 0.5 Mg-3 Mg/3 ml Soln) 3 ml RTQ4 PRN IH WHEEZING 06/14/18 07:30 07/14/18 07:29 Ceftriaxone Sodium 1000 mg/ Sodium Chloride 100 ml @ 100 mls/hr Q24HRS IV 06/14/18 07:30 06/14/18 08:01 DC Azithromycin 500 mg/Sodium Chloride 250 ml @ 175 mls/hr Q24HRS ONCE IV 06/14/18 07:30 06/14/18 08:55 DC 06/14/18 07:44 Azithromycin (Zithromax) 250 mg DAILY PO 06/15/18 09:00 07/15/18 08:59 06/15/18 08:24 Guaifenesin (Mucinex) 600 mg BID PO 06/14/18 09:00 07/14/18 08:59 06/15/18 08:24 Furosemide (Lasix) 40 mg DAILY IV 06/14/18 10:00 06/20/18 10:00 06/15/18 08:24 Insulin Human Regular (Humulin R) Give 30 minutes before meal ACHS SQ 06/14/18 07:30 07/14/18 07:29 06/14/18 07:30 Dextrose (Dextrose 50%-Water Syringe) 25 ml STAT PRN IV HYPOGLYCEMIA 06/14/18 07:30 07/14/18 07:29 Enoxaparin Sodium (Lovenox) 30 mg DAILY SQ 06/14/18 09:00 06/14/18 09:00 DC Cholecalciferol (Vitamin D) 5,000 unit Q7D PO 06/14/18 07:30 07/14/18 07:29 Fluoxetine HCl (Prozac) 10 mg DAILY PO 06/14/18 09:00 07/14/18 08:59 06/15/18 08:24 Metoprolol Succinate (Toprol Xl) 50 mg DAILY PO 06/14/18 09:00 07/14/18 08:59 06/15/18 08:23 Oxybutynin Chloride (Ditropan) 5 mg BID PO 06/14/18 09:00 07/14/18 08:59 06/15/18 08:24 Atorvastatin Calcium (Lipitor) 5 mg HS PO 06/14/18 21:00 07/14/18 20:59 06/14/18 20:55 Terazosin HCl (Hytrin) 1 mg HS PO 06/14/18 21:00 07/14/18 20:59 06/14/18 20:55 Sodium Chloride 100 ml @ ud STK-MED ONCE IV 06/14/18 07:38 06/14/18 07:40 DC Ceftriaxone Sodium 1000 mg/ Sodium Chloride 100 ml @ 100 mls/hr Q24HRS IV 06/14/18 21:00 06/15/18 09:35 DC Ceftriaxone Sodium 1000 mg/ Sodium Chloride 100 ml @ 100 mls/hr Q24HRS IV 06/15/18 10:00 07/15/18 09:59 06/15/18 10:26 Sodium Chloride 100 ml @ ud STK-MED ONCE IV 06/15/18 10:23 06/15/18 10:25 DC ===== LAB FINAL SITE ID: PRM RUN DATE: 06/15/18 [facility] *LIVE* PAGE 1 RUN TIME: 1119 Specimen Inquiry PATIENT: DIANAALEXANDRE Marie ACCT: [id number] LOC: MS U : [id number] AGE/SX: 73/M ROOM: 328 REG : 06/13/[address]: ANA YOUNG DO : 1945 BED: A DIS : STATUS: ADM IN TLOC: SPEC #: [id number] MIGNON: 06/14/18 STATUS: RES REQ #: [id number] RECD: 06/14/[address]: ANA YOUNG DO SOURCE: URINE CC ENTR: 06/14/18 [facility] DR: IMMANUEL CASTELLON MD SPDESC: JON TOMLINSON MD ORDERED: UR CULTURE Procedure Result URINE CULTURE Preliminary PRELIMINARY REPORT NO GROWTH AT 33 HOURS General: Alert, Oriented X3 HEENT: Atraumatic, PERRLA, Other Neck: Supple, No JVD Lungs: Other (Joelle wheezes and rhonchi) Heart: Regular rate, Normal S1, Normal S2 Abdomen: Normal bowel sounds, Soft Extremities: No clubbing, No cyanosis Skin: No rashes, No breakdown Neuro: Normal speech, Cranial nerves 3-12 NL All Results(Lab/Rad) PATIENT NAME: ALEXANDRE ORTIZ MR#: [id number] : 1945 LOCATION: ER ROOM#: BED: SEX: M AGE: 73 SERVICE DATE: 06/13/182139 ORDERING PHYSICIAN: JON TOMLINSON MD RAD#: [id number] ACCESSION NUMBER(s): [id number] PROCEDURE: XR CHEST 1V EXAM DATE: 06/13/182202 cc: HARRIET CHAMBERS MD; JON TOMLINSON MD / CC: HARRIET CHAMBERS MD; JON TOMLINSON MD PROCEDURE:CHEST 1 VIEW COMPARISON:[facility], CR, XRAY CHEST SINGLE VW, 03/28/2017, 12:57 PM. INDICATIONS:shortness of breath FINDINGS: LUNGS/PLEURA:There are interstitial changes bilaterally with scattered hazy airspace changes bilaterally. More confluent density at the left base. Small left pleural effusion is possible. VASCULATURE:Within normal limits. CARDIAC:No cardiomegaly. JAMILA/MEDIASTINUM:No visible mass or adenopathy. BONES:No acute fracture. OTHER:No additional findings. CONCLUSION: 1. Findings are suspicious for acute pneumonia/pneumonitis. Medication Reconciliation Scheduled Apixaban (Eliquis), 5 MG PO DAILY24, (Reported) Cholecalciferol (Vitamin D3) (Vitamin D), 5,000 UNIT PO Q7D, (Reported) Fluoxetine Hcl (Fluoxetine Hcl), 1 CAP PO DAILY, (Reported) Fluticasone/Salmeterol (Advair 250-50 Diskus), 1 PUFF IH BID, (Reported) Furosemide (Furosemide), 1 TAB PO PRN, (Reported) Lisinopril (Lisinopril), 1 TAB PO DAILY, (Reported) Metformin Hcl (Metformin Hcl), 1 TAB PO BID, (Reported) Metoprolol Succinate (Metoprolol Succinate), 1 TAB PO DAILY, (Reported) Oxybutynin Chloride (Oxybutynin Chloride), 1 TAB PO BID, (Reported) Pravastatin Sodium (Pravachol), 1 TAB PO HS, (Reported) Terazosin Hcl (Terazosin Hcl), 0.5 CAP PO HS, (Reported) Scheduled PRN Fluticasone Propionate (Fluticasone Propionate), 1 SPR NA HS PRN for CONGESTION, (Reported) Ipratropium Ralston (Atrovent Hfa), 2 PUFF IH Q6HR PRN for SHORTNESS OF BREATH, (Reported) Assessment/Plan Assessment/Plan Assessment/Plan Community Acquired pneumonia Acute on chronic systolic CHF History of COPD New leucocytosis likely 2/2 steroids Diabetes mellitus Mild normocytic anemia 11.3 Lymphopenia 6.3 Hyperglycemia 142 ProBNP 52,118 Slightly elevated troponin 0.09 Hypoalbuminemia 2.9 Plan Cont Abx for community acquired pneumonia with Rocephine and Zithromax. Cont Mucinex, DuoNeb's, oxygen when necessary Blood and Ur cx Neg so far Decrease Lasix to 40 mg IV a day. JASON Pagan tmr Hyperglycemic protocol. A1C in the am GI prophylaxis DVT prophylaxis. ANA YOUNG DO Jun 15, 2018 14:12
[2018-06-15] MEDS ORDERED: POTASSIUM CHLORIDE ONE (16:40)
[2018-06-15] MEDS ORDERED: BUMINATE 25% 100 ML IV ONE (16:40)
--- NOTE | 2018-06-15 17:00 | NUR ---
STATUS Pt SOUNDED "WHEEZY" AWAKE, WHEN THIS NURSE CHECKED SPO2 IT WAS 91 IN 1 LIT INCREASED TO 1.5, INCREASED TO 93%. THIS NURSE CALLED RT SUZI NOTIFIED TO PROVIDE BREATHING TREATMENT TO THE Pt.
--- NOTE | 2018-06-15 17:15 | NUR ---
STATUS Pt PULSE `124 IN TEL MONITOR, NOTIFIED DR. YOUNG. RECHECKED O2 IT WAS 90.
--- NOTE | 2018-06-15 17:20 | NUR ---
STATUS DR. YOUNG AT [facility] BEDSIDE 02 67 % IN 2 LIT. BP 210/110, RECEIVED AN ORDER FOR BREATHING TX RT , SUZI ADMINISTERED BREATHING TX. ADMINISTERED SOLU 80 MG STAT IV, ADMINISTERED PER ORDER.
[2018-06-15] MEDS ORDERED: SOLU-MEDROL IV STA (17:29)
[2018-06-15] MEDS ORDERED: LASIX IV STA (17:35)
--- NOTE | 2018-06-15 17:35 | NUR ---
ADMINISTERED 40 MG IV LASIX PER ORDER.
--- NOTE | 2018-06-15 17:40 | NUR ---
DR YOUNG TALKED WITH THE POWER OF BREAD DUMPER THAT Pt IS DNR, POWER OF BREAD DUMPER CALLED MEDICAL POWER OF BREAD DUMPER AND TOLD HE IS FULL CODE.
[2018-06-15] MEDS ORDERED: APRESOLINE ONE (17:43)
--- NOTE | 2018-06-15 17:49 | NUR ---
STATUS BP 198 /90, P [address] YOUNG AND FAMILY OF Pt AT THE BEDSIDE. DR YOUNG AND DR PRIETO AT HE BEDSIDE.
--- NOTE | 2018-06-15 17:50 | NUR ---
COURTNEY CRUZ WAS CALLED, INITIATED COURTNEY CRUZ.
--- NOTE | 2018-06-15 17:50 | NUR ---
HYDRALAZINE 20 IV MG ADMINISTERED PER ORDER OF DR YOUNG.
--- NOTE | 2018-06-15 17:55 | NUR ---
FIRST CODE WAS INITIATED AND INTUBATION WITH SUCTION Pt ASPIRATED, NO PULSE. DR YOUNG PLATE DRILLER WATCHING PULSE RHYTHM AND ORDERING, AND DR RPIETO AND SUZI INTUBATING AND SUCTIONING, NURSE TYRON RN, FRANKLIN RN, JANUSZ RN DOING COMPRESSION, RUY DHILLON PUSHING MEDS, THIS NURSE RECORDING, FAMILY OUTSIDE OF ROOM. AT 1758 FIRST EPI 1 MG ADMINISTERED, CPR CONTINUE, AT 1800 1 MG EPI ADMINISTERED, NO PULSE CPR CONTINUED, AT 1802 BICARB 50 MG ADMINISTERED, NO PULSE CPR CONTINUED 1804 EPI 1 MG ADMINISTERED, NO PULSE CPR CONTINUED, 1807 1 MG EPI ADMINISTERED, 1808 PULSE AND CIRCULATION CAME BACK (RIGHT AT THE SAME TIME FAMILY AND MEDICAL POWER OF APPLICATION DEVELOPMENT LIAISON TOLD TO STOP), Pt SINUS TACHY. 1813 XRAY COMPLETED. Pt WAS ORDERED TO TRANSFER TO ICU ROOM 5. BP 177/82, 171 P, 98 % O2SAT. AT 1825 Pt WAS TRANSFERRED TO ICU REPORT GIVEN TO ICU NURSE JOCELYNE DHILLON.
[2018-06-15] MEDS ORDERED: WATER ONE (18:30)
[2018-06-15] MEDS ORDERED: NS 500ML 500 ML IV ONE (18:42)
--- NOTE | 2018-06-15 18:59 | DIREP ---
PROCEDURE:CHEST 1 VIEW COMPARISON:[facility], CR, XRAY CHEST SINGLE VW, 06/13/2018, 09:42 PM. [facility], CR, XRAY CHEST SINGLE VW, 03/28/2017, 12:57 PM. INDICATIONS:CARDIAC ARREST FINDINGS: LUNGS/PLEURA:Right mid lung old hockey l5. Mildly prominent bilateral interstitial lung markings. There is slight improvement of the left lung base compared with prior exam. VASCULATURE:Normal. Unremarkable pulmonary vasculature. CARDIAC:Normal. No cardiac silhouette abnormality or cardiomegaly. MEDIASTINUM:Atherosclerotic aorta with no visible aneurysm. BONES:Normal. No fracture or visible bony lesion. OTHER:Marked gaseousness distension of the stomach. CONCLUSION: 1. Persistent nodular opacity seen in the right mid lung zone with prominent interstitial lung markings bilaterally. Slight improvement in the left lung base 2. Marked gaseousness distension of the stomach. Dictated by: Sonido Keys MD on 06/15/2018 at 06:53 PM
--- NOTE | 2018-06-15 19:00 | NUR ---
RECEIVED PATIENT CHALENA RT AT BEDSIDE SETTING UP [facility]. VENT MACHINE. MARYCRUZ DHILLON INSERTING OGT. DR YOUNG AT BEDSIDE. RECEIVED REPORT FROM JOCELYNE DHILLON. PT IS UNRESPONSIVE TO VOICE OR PAIN AT THIS TIME. SLUGGISH TO FIX PUPILS NOTED. SEE ASSESSMENT. ASSUMED CARE.
--- NOTE | 2018-06-15 19:07 | DIREP ---
PROCEDURE:CHEST 1 VIEW COMPARISON:[facility], CR, XRAY CHEST SINGLE VW, 06/13/2018, 09:42 PM. [facility], CR, XRAY CHEST SINGLE VW, 03/28/2017, 12:57 PM. INDICATIONS:verification of NG and endotracheal tube placement FINDINGS: LUNGS/PLEURA:Trace left lower lobe patchy opacity. No focal consolidation. No pneumothorax. Mild perihilar streaky opacities. Endotracheal tube is midway between the thoracic inlet and carol. VASCULATURE:Normal. Unremarkable pulmonary vasculature. CARDIAC:Normal. No cardiac silhouette abnormality or cardiomegaly. MEDIASTINUM:Nasogastric tube tip is in the distal stomach BONES:Mild to moderate degenerative changes in the shoulders OTHER:Multiple leads noted CONCLUSION:Endotracheal tube in good position along with a nasogastric tube. Trace left lower lobe patchy opacities which appear improved when compared prior exam. No pneumothorax. Dictated by: Sonido Keys MD on 06/15/2018 at 06:59 PM
--- NOTE | 2018-06-15 19:10 | NUR ---
FEBRILE- RECTAL TEMP 102.3 COOLING MEASURES INITIATED. ICE PACKS TO BOTH AXILLA, NAPE AND FOREHEAD. BLANKETS REMOVED. NOTIFIED DR YOUNG.
--- NOTE | 2018-06-15 19:15 | NUR ---
NS @ 20 ML/HR RECEIVED VERBAL ORDER FROM DR YOUNG TO START PATIENT ON NS AT KVO, 20 ML/HR. RBVO. CARRIED OUT ORDER ACCORDINGLY.
[2018-06-15 19:21] LABS: BASOPHIL % 0.1 % (0.0-0.2); CARBON DIOXIDE 22.2 mmol/L (20.0-32); EOSINOPHIL % 0.2 % (0.0-5.0); HEMOGLOBIN 10.5 g/dL (13.9-16.3); LYMPHOCYTES # 0.7 10^3/uL (1.0-4.8); LYMPHOCYTES % 4.8 % (24.0-44.0); MEAN CELL HGB 30.3 pg (26-34); MEAN PLATELET VOLUME 9.7 fL (7.8-11.0); MONOCYTES # 0.3 10^3/uL (0.3-0.8); NEUTROPHILS % 91.4 % (41.0-85.0); RED CELL DISTRIBUTION WIDTH 15.5 % (11.5-14.5); WHITE BLOOD CELL 14.3 10^3/uL (4.5-11.0)
[2018-06-15 19:22] LABS: CALCIUM 7.6 mg/dL (8.4-10.5)
[2018-06-15 19:38] LABS: ABG PCO2 49.6 mmHg (35.0-45.0); ABG PH 7.319 (7.350-7.450); BE(B) -1.6 mmol/L (-2.0-2.0); HCO3act 24.9 mmol/L (22.0-26.0); pO2 405.2 mmHg (75.0-100.0)
[2018-06-15] MEDS ORDERED: ATIVAN ONE (20:00)
--- NOTE | 2018-06-15 20:00 | NUR ---
ORAL CARE DONE
[2018-06-15] MEDS ORDERED: DIPRIVAN 100 ML IV ONE ×2 (20:04→22:53)
[2018-06-15] MEDS ORDERED: ATIVAN IV PRN (20:30)
--- NOTE | 2018-06-15 20:30 | NUR ---
SEIZURE TWITCHING OF DIFFERENT FACIAL/ ORBITAL MUSCLES IN NO PARTICULAR PATTERN; JERKY MOVEMENTS OF BOTH UPPER AND LOWER EXTREMITIES NOTED. LASTED FOR 1-3 SECONDS WITH FREQUENCY OF 10- 15 SECONDS APART. NO CHANGED IN HEART RATE/ COLOR. DR YOUNG AT BEDSIDE. RECEIVED ORDER TO GIVE ATIVAN 2 MG IV STAT ONCE. RBVO. CARRIED OUT ACCORDINGLY. Addendum: 06/16/18 at 0331 by Radha Manley RN- ENGINEER FIRST ASSISTANT ON SEIZURE PRECAUTION
[2018-06-15] MEDS: OFIRMEV IV SCH (20:31)
[2018-06-15] MEDS: DIPRIVAN IV PRN (20:45)
--- NOTE | 2018-06-15 20:45 | NUR ---
PROPOFOL @ 5 MCG/KG/MIN
[2018-06-15] MEDS: HYTRIN PO SCH (21:00)
[2018-06-15] MEDS: LIPITOR PO SCH (21:00)
--- NOTE | 2018-06-15 21:55 | NUR ---
PRN SLIDING SCALE NON ADMINISTERED PT ACCUCHECK (BLOOD SUGAR) 201 MG/DL, NPO. WILL CONTINUE TO MONITOR
--- NOTE | 2018-06-15 22:00 | NUR ---
PROPOFOL @ 10 MCG/KG/MIN
[2018-06-15] MEDS: KEPPRA IV SCH (23:13)
[2018-06-16] VITALS (70 sets, daily range): BP systolic 119–185; BP diastolic 53–116
--- NOTE | 2018-06-16 00:05 | NUR ---
ORAL CARE DONE
[2018-06-16] MEDS: OFIRMEV IV SCH ×3 (03:29→19:42)
--- NOTE | 2018-06-16 03:57 | NUR ---
TELEPHONE CALL TO DR YOUNG NOTIFIED RE: PATIENT'S INCREASING BP AND HEART RATE. RECEIVED THE FF ORDERS: START PATIENT ON ZOSYN 3.75G IV Q6. METOPROLOL 5 MG IV Q2 PRN HR >100 & >SBP 160 DISCONTINUE ZITHROMAX & ROCEPHIN Addendum: 06/16/18 at 0400 by ELIAS Chávez RN RBTO. Addendum: 06/16/18 at 0407 by ELIAS Chávez RN TYPO ERROR CORRECTION: ZOSYN DOSE 3.375 G
[2018-06-16] MEDS: DUONEB 0.5 MG-3 MG/3 ML SOLN IH SCH ×4 (04:02→20:35)
[2018-06-16] MEDS ORDERED: NS 100ML 100 ML IV ONE ×3 (04:07→19:09)
[2018-06-16] MEDS ORDERED: ZOSYN 3.375 GRAM VIAL IV ONE (04:07)
[2018-06-16] MEDS: LOPRESSER IVP PRN ×2 (04:13→08:09)
[2018-06-16] MEDS: ZOSYN 3.375 GRAM VIAL 3.375 GM in NS 100ML 100 ML IV SCH ×4 (04:15→21:48)
[2018-06-16 05:19] LABS: BASOPHIL % 0.1 % (0.0-0.2); HEMOGLOBIN 11.3 g/dL (13.9-16.3); LYMPHOCYTES # 0.3 10^3/uL (1.0-4.8); LYMPHOCYTES % 1.3 % (24.0-44.0); MEAN CELL HGB 30.5 pg (26-34); MEAN CELL HGB CONCENTRATION 32.2 g/dL (33-37); MEAN CORP VOLUME 94.6 fL (78-100); MEAN PLATELET VOLUME 9.5 fL (7.8-11.0); MONOCYTES # 0.6 10^3/uL (0.3-0.8); MONOCYTES % 2.8 % (5.0-12.0); NEUTROPHIL # 18.5 10^3/uL (1.8-7.7); NEUTROPHILS % 95.4 % (41.0-85.0); RED CELL DISTRIBUTION WIDTH 15.8 % (11.5-14.5); WHITE BLOOD CELL 19.4 10^3/uL (4.5-11.0)
[2018-06-16] MEDS: LASIX IV SCH (05:20)
[2018-06-16 05:37] LABS: CALCIUM 7.7 mg/dL (8.4-10.5); CARBON DIOXIDE 25.5 mmol/L (20.0-32)
--- NOTE | 2018-06-16 06:15 | NUR ---
CHG BATH DONE PERICARE, ORAL CARE, UGALDE CARE DONE. CHANGED GOWN.
[2018-06-16] MEDS: KEPPRA IV SCH (06:16)
--- NOTE | 2018-06-16 06:30 | NUR ---
TELEPHONE CALL TO DR YOUNG INFORMED DR YOUNG PT REMAINED TACHYCARDIC GREATER THAN 120s AND HYPERTENSIVE SBP 160s. DR STATED THAT HE WILL COME ASSESS PT THIS MORNING. NO NEW ORDERS RECEIVED.
[2018-06-16 06:51] LABS: BAND NEUTROPHILS 20 % (2-6); LYMPHOCYTE 2 % (25-36); MONOCYTE 4 % (3-9); SEGMENTED NEUTROPHILS 69 % (31-76)
--- NOTE | 2018-06-16 07:00 | NUR ---
RECEIVED REPORT ASSUMED CARE, MECHANICAL VENT IN PLACE, SEE VENT ASSESSMENT, BEDSIDE MONITOR READING SINUS TACH 124, SR UP X2, propofol 10 mcg/kg/min via r wrist 20 gauge iv, eyes closed, breathing non-labored.
--- NOTE | 2018-06-16 07:20 | NUR ---
REPORT TO AM SHIFT ENDORSED PATIENT ACCORDINGLY.
[2018-06-16] MEDS: HUMULIN R SQ SCH ×4 (07:30→21:00)
[2018-06-16] MEDS ORDERED: SODIUM BICARBONATE IV ONE (08:00)
[2018-06-16] MEDS ORDERED: EPINEPHRINE IV ONE (08:00)
--- NOTE | 2018-06-16 08:15 | NUR ---
LOPRESSOR 5 MG IV ADMINISTERED PRN, HR 150'S.
--- NOTE | 2018-06-16 08:21 | NUR ---
Letha LLANOS at bedside to perform vent check and change out Sarthak. Addendum: 06/16/18 at 1814 by Ngoc Gusman RN - [employer] ADMINISTRATOR FIO2 DECREASED TO 55% PER DR HECTOR ALVAREZ
--- NOTE | 2018-06-16 08:40 | NUR ---
FIO2 DECREASED TO 45% BY XAVIER RT
[2018-06-16] MEDS: PROZAC PO SCH (09:00)
[2018-06-16] MEDS: MUCINEX PO SCH ×2 (09:00→19:55)
[2018-06-16] MEDS: PROTONIX PO SCH (09:00)
[2018-06-16] MEDS: TOPROL XL PO SCH (09:00)
--- NOTE | 2018-06-16 09:19 | PRM.PN ---
Subjective Subjective Date: Jun 16, 2018 Time: 09:08 Subjective This patient was doing well yesterday with a tentative discharge date for today until in the evening when he was eating his dinner and had choked on his dinner and aspirated. He became hypoxic and eventually had pulseless electrical activity and was coded. He was eventually intubated and transferred to the ICU on the ventilator. His antibiotics were changed from Rocephin and azithromycin to Zosyn. He continues to be in the ICU this morning hooked up to the ventilator. His family and caretakers were here last night and his DURABLE POWER OF RN ON SITE and medical power of early childhood lead teacher agreed to make him full code just prior to intubation. Toeards the end of CPR and ACLS protocol, they reverted his CODE STATUS to DNR. However the patient was already intubated at that time. The patient is seen in the ICU this morning on the ventilator. He still has elevated blood pressure and elevated pulse. Pupils are equal and reactive to light this morning. He appears to be twitching around his neck region. He was started on Keppra twice a day and Ativan prn yesterday. Patient History: Throat cancer 32 FATHER Unknown Objective Vitals and I/O Intake and Output 06/15/18 06/15/18 06/16/18 15:00 23:00 07:00 Intake Total 480 ml Output Total 1400 ml Balance -920 ml Laboratory Tests Test 06/15/18 18:30 06/15/18 19:14 06/16/18 04:52 06/16/18 05:36 White Blood Count 14.3 10^3/uL 19.4 10^3/uL Red Blood Count 3.46 10^6/uL 3.71 10^6/uL Hemoglobin 10.5 g/dL 11.3 g/dL Hematocrit 33.9 % 35.1 % Mean Corpuscular Volume 98.0 fL 94.6 fL Mean Corpuscular Hemoglobin 30.3 pg 30.5 pg Mean Corpuscular Hemoglobin Concent 31.0 g/dL 32.2 g/dL Red Cell Distribution Width 15.5 % 15.8 % Platelet Count 264 10^3/uL 285 10^3/uL Mean Platelet Volume 9.7 fL 9.5 fL Neutrophils (%) (Auto) 91.4 % 95.4 % Lymphocytes (%) (Auto) 4.8 % 1.3 % Monocytes (%) (Auto) 2.0 % 2.8 % Neutrophils # (Auto) 13.0 10^3/uL 18.5 10^3/uL Lymphocytes # (Auto) 0.7 10^3/uL 0.3 10^3/uL Monocytes # (Auto) 0.3 10^3/uL 0.6 10^3/uL Absolute Immature Granulocyte (auto 0.21 10^3 u/L 0.08 10^3 u/L Eosinophils % 0.2 % 0.0 % Basophils % 0.1 % 0.1 % Basophils # 0.0 10^3/uL 0.0 10^3/uL Eosinophil Count 0.0 10^3/uL 0.0 10^3/uL Sodium Level 138 mmol/L 140 mmol/L Potassium Level 4.4 mmol/L 3.4 mmol/L Chloride Level 98.0 mmol/L 100.0 mmol/L Carbon Dioxide Level 22.2 mmol/L 25.5 mmol/L Anion Gap 22.2 17.9 Blood Urea Nitrogen 45 mg/dL 52 mg/dL Creatinine 2.01 mg/dL 1.67 mg/dL Estimated GFR () 39.5 48.9 BUN/Creatinine Ratio 22.0 31.0 Glucose Level 304 mg/dL 184 mg/dL Calcium Level 7.6 mg/dL 7.7 mg/dL Magnesium Level 1.7 mg/dL 1.6 mg/dL Total Bilirubin 0.3 mg/dL Aspartate Amino Transf (AST/SGOT) 485 U/L Alanine Aminotransferase (ALT/SGPT) 359 U/L Alkaline Phosphatase 113 U/L Total Protein 6.6 g/dL Albumin 2.7 g/dL Globulin 3.9 Percent Immature Gran (Cell Imm) 1.50 % 0.40 % Blood Gas Sample Site RT BRACIAL ARTERY Blood Gas pH 7.319 Blood Gas PCO2 49.6 mmHg Blood Gas PO2 405.2 mmHg Blood Gas HCO3 24.9 mmol/L Blood Gas Base Excess -1.6 mmol/L Ben Test N/A Arterial Blood Oxygen Saturation 99.7 % Deoxyhemoglobin 0.3 % Carboxyhemoglobin 0.2 % Methemoglobin 0.6 % Total Hemoglobin 12.0 % Total Oxygen Concentration 17.8 % Lactic Acid (Blood Gas) 4.9 MMOL/L Blood Gas Temperature 37.0 Oxygen Delivery Method (LAB) VENT Blood Gas Vent Mode AC Blood Gas Vent Rate 14 FiO2 100 % Blood Gas Tidal Volume 500 ML Blood Gas PEEP 6.0 CMH2O Bicarbonate 26.4 mmol/L Differential Total Cells Counted 100 #CELLS Segmented Neutrophils 69 % Band Neutrophils 20 % Lymphocytes 2 % Monocytes 4 % Metamyelocytes 2 % Atypical Lymphocytes 1 % Current Medications Medications (Trade) Dose Ordered Sig/Isabel Route PRN Reason Start Time Stop Time Status Last Admin Dose Admin Methylprednisolone Sodium Succinate (Solu-Medrol) 125 mg STAT STAT IV 06/13/18 22:00 06/13/18 22:03 DC 06/13/18 22:36 Albuterol/ Ipratropium (Duoneb 0.5 Mg-3 Mg/3 ml Soln) 3 ml STAT STAT IH 06/13/18 22:00 06/13/18 22:03 DC 06/13/18 22:11 Dexamethasone Sodium Phosphate (Decadron) 4 mg STAT STAT IH 06/13/18 22:00 06/13/18 22:03 DC 06/13/18 22:11 Albuterol/ Ipratropium (Duoneb 0.5 Mg-3 Mg/3 ml Soln) 3 ml STK-MED ONCE IH 06/13/18 22:02 06/13/18 22:04 DC Dexamethasone Sodium Phosphate (Decadron) 4 mg STK-MED ONCE .ROUTE 06/13/18 22:02 06/13/18 22:04 DC Methylprednisolone Sodium Succinate (Solu-Medrol) 125 mg STK-MED ONCE .ROUTE 06/13/18 22:29 06/13/18 22:31 DC Ceftriaxone Sodium 1000 mg/ Sodium Chloride 100 ml @ 100 mls/hr OT STAT IV 06/13/18 22:46 06/13/18 23:45 DC 06/13/18 22:52 Sodium Chloride 100 ml @ ud STK-MED ONCE IV 06/13/18 22:50 06/13/18 22:52 DC Ceftriaxone Sodium (Rocephin) 1,000 mg STK-MED ONCE .ROUTE 06/13/18 22:50 06/13/18 22:52 DC Methylprednisolone Sodium Succinate (Solu-Medrol) 60 mg Q8HR IV 06/14/18 05:00 06/14/18 07:12 DC 06/14/18 05:25 Albuterol/ Ipratropium (Duoneb 0.5 Mg-3 Mg/3 ml Soln) 3 ml RTQ6 IH 06/14/18 06:00 06/14/18 06:00 DC Furosemide (Lasix) 40 mg STAT STAT IV 06/13/18 23:30 06/13/18 23:36 DC 06/14/18 00:11 Albuterol/ Ipratropium (Duoneb 0.5 Mg-3 Mg/3 ml Soln) 3 ml RTQ6 IH 06/14/18 03:00 07/14/18 02:59 06/16/18 08:36 Furosemide (Lasix) 40 mg STK-MED ONCE .ROUTE 06/14/18 00:11 06/14/18 00:13 DC Methylprednisolone Sodium Succinate (Solu-Medrol) 40 mg Q12HR IV 06/14/18 09:00 06/17/18 09:01 06/14/18 09:11 Acetaminophen (Tylenol) 1,000 mg Q6H PRN PO PAIN MILD 06/14/18 07:30 07/14/18 07:29 Ondansetron HCl (Zofran) 4 mg Q4H PRN IV NAUSEA / VOMITING 06/14/18 07:30 07/14/18 07:29 Pantoprazole Sodium (Protonix) 40 mg DAILY PO 06/14/18 09:00 07/14/18 08:59 06/15/18 08:24 Albuterol/ Ipratropium (Duoneb 0.5 Mg-3 Mg/3 ml Soln) 3 ml RTQ4 PRN IH WHEEZING 06/14/18 07:30 07/14/18 07:29 Ceftriaxone Sodium 1000 mg/ Sodium Chloride 100 ml @ 100 mls/hr Q24HRS IV 06/14/18 07:30 06/14/18 08:01 DC Azithromycin 500 mg/Sodium Chloride 250 ml @ 175 mls/hr Q24HRS ONCE IV 06/14/18 07:30 06/14/18 08:55 DC 06/14/18 07:44 Azithromycin (Zithromax) 250 mg DAILY PO 06/15/18 09:00 06/16/18 04:07 DC 06/15/18 08:24 Guaifenesin (Mucinex) 600 mg BID PO 06/14/18 09:00 07/14/18 08:59 06/15/18 08:24 Furosemide (Lasix) 40 mg DAILY IV 06/14/18 10:00 06/20/18 10:00 06/16/18 05:20 Insulin Human Regular (Humulin R) Give 30 minutes before meal ACHS SQ 06/14/18 07:30 07/14/18 07:29 06/14/18 07:30 Dextrose (Dextrose 50%-Water Syringe) 25 ml STAT PRN IV HYPOGLYCEMIA 06/14/18 07:30 07/14/18 07:29 Enoxaparin Sodium (Lovenox) 30 mg DAILY SQ 06/14/18 09:00 06/14/18 09:00 DC Cholecalciferol (Vitamin D) 5,000 unit Q7D PO 06/14/18 07:30 07/14/18 07:29 Fluoxetine HCl (Prozac) 10 mg DAILY PO 06/14/18 09:00 07/14/18 08:59 06/15/18 08:24 Metoprolol Succinate (Toprol Xl) 50 mg DAILY PO 06/14/18 09:00 07/14/18 08:59 06/15/18 08:23 Oxybutynin Chloride (Ditropan) 5 mg BID PO 06/14/18 09:00 07/14/18 08:59 06/15/18 08:24 Atorvastatin Calcium (Lipitor) 5 mg HS PO 06/14/18 21:00 07/14/18 20:59 06/14/18 20:55 Terazosin HCl (Hytrin) 1 mg HS PO 06/14/18 21:00 07/14/18 20:59 06/14/18 20:55 Sodium Chloride 100 ml @ ud STK-MED ONCE IV 06/14/18 07:38 06/14/18 07:40 DC Ceftriaxone Sodium 1000 mg/ Sodium Chloride 100 ml @ 100 mls/hr Q24HRS IV 06/14/18 21:00 06/15/18 09:35 DC Ceftriaxone Sodium 1000 mg/ Sodium Chloride 100 ml @ 100 mls/hr Q24HRS IV 06/15/18 10:00 06/16/18 04:07 DC 06/15/18 10:26 Sodium Chloride 100 ml @ ud STK-MED ONCE IV 06/15/18 10:23 06/15/18 10:25 DC Potassium Chloride (Potassium Chloride) 40 meq STAT STAT PO 06/15/18 13:58 06/15/18 14:05 DC 06/15/18 16:43 Potassium Chloride (Klor-Con 10) 20 meq STAT PO 06/15/18 14:00 07/15/18 13:59 Albumin Human (Buminate 25%) 100 ml STAT STAT IV 06/15/18 13:59 06/15/18 14:05 DC 06/15/18 16:43 Potassium Chloride (Potassium Chloride) 40 meq STK-MED ONCE .ROUTE 06/15/18 16:40 06/15/18 16:41 DC Albumin Human 100 ml @ ud STK-MED ONCE IV 06/15/18 16:40 06/15/18 16:41 DC Methylprednisolone Sodium Succinate (Solu-Medrol) 80 mg STAT STAT IV 06/15/18 17:29 06/15/18 20:56 DC 06/15/18 17:29 Furosemide (Lasix) 40 mg STAT STAT IV 06/15/18 17:35 06/15/18 20:53 DC Hydralazine HCl (Apresoline) 20 mg STK-MED ONCE .ROUTE 06/15/18 17:43 06/15/18 17:44 DC Sterile Water (Water) 1,000 ml STK-MED ONCE .ROUTE 06/15/18 18:30 06/15/18 18:31 DC Sodium Chloride 500 ml @ ud STK-MED ONCE IV 06/15/18 18:42 06/15/18 18:43 DC Acetaminophen (Ofirmev) 1,000 mg Q8H IV 06/15/18 20:00 07/15/18 19:59 06/16/18 03:29 Lorazepam (Ativan) 2 mg STK-MED ONCE .ROUTE 06/15/18 20:00 06/15/18 20:02 DC Propofol 100 ml @ ud STK-MED ONCE IV 06/15/18 20:04 06/15/18 20:06 DC Lorazepam (Ativan) 2 mg Q4HR PRN IV AGITATION 06/15/18 20:30 07/15/18 20:29 06/15/18 20:31 Propofol (Diprivan) 200 mg PRN PRN IV SEDATION 06/15/18 20:30 07/15/18 20:29 06/15/18 20:45 Levetiracetam (Keppra) 500 mg Q8 IV 06/15/18 22:00 07/15/18 21:59 06/16/18 06:16 Propofol 100 ml @ ud STK-MED ONCE IV 06/15/18 22:53 06/15/18 22:54 DC Sodium Chloride 100 ml @ ud STK-MED ONCE IV 06/15/18 23:10 06/15/18 23:12 DC Piperacillin Sod/ Tazobactam Sod 3.375 gm/Sodium Chloride 100 ml @ 100 mls/hr Q6H IV 06/16/18 04:30 07/16/18 04:29 06/16/18 04:15 Metoprolol Tartrate (Lopresser) 5 mg Q2 PRN IVP HYPERTENSION 06/16/18 04:30 07/16/18 04:29 06/16/18 08:09 Sodium Chloride 100 ml @ ud STK-MED ONCE IV 06/16/18 04:07 06/16/18 04:09 DC Piperacillin Sod/ Tazobactam Sod (Zosyn 3.375 Gram Vial) 3.375 gm STK-MED ONCE IV 06/16/18 04:07 06/16/18 04:09 DC Sodium Chloride 100 ml @ ud STK-MED ONCE IV 06/16/18 05:23 06/16/18 05:25 DC General: Other (intubated and on the ventilator.) HEENT: Other (Pupils are pinpoint(Pt on narcotics). The also reactive to light ) Neck: Other (JVD. Hyperactive neck vessels) Lungs: Other (Particio diminished Breath sounds) Heart: Normal S1, Normal S2, Other (tachycardia) Abdomen: Normal bowel sounds, No hepatospenomegaly, No masses Extremities: No clubbing, No edema Skin: No rashes, No breakdown All Results(Lab/Rad) PATIENT NAME: ALEXANDRE ORTIZ MR#: [id number] : 1945 LOCATION: ICU ROOM#: [id number] BED: A SEX: M AGE: 73 SERVICE DATE: 06/13/18 2140 ORDERING PHYSICIAN: ANA YOUNG DO RAD#: [id number] ACCESSION NUMBER(s): [id number] PROCEDURE: XR CHEST 1V EXAM DATE: 06/15/181840 cc: SELENA RICHARDSON MD; ANA YOUNG DO / CC: SELENA RICHARDSON MD; ANA YOUNG DO PROCEDURE:CHEST 1 VIEW COMPARISON:[facility], CR, XRAY CHEST SINGLE VW, 06/13/2018, 09:42 PM. [facility], CR, XRAY CHEST SINGLE VW, 03/28/2017, 12:57 PM. INDICATIONS:verification of NG and endotracheal tube placement FINDINGS: LUNGS/PLEURA:Trace left lower lobe patchy opacity. No focal consolidation. No pneumothorax. Mild perihilar streaky opacities. Endotracheal tube is midway between the thoracic inlet and carol. VASCULATURE:Normal. Unremarkable pulmonary vasculature. CARDIAC:Normal. No cardiac silhouette abnormality or cardiomegaly. MEDIASTINUM:Nasogastric tube tip is in the distal stomach BONES:Mild to moderate degenerative changes in the shoulders OTHER:Multiple leads noted CONCLUSION:Endotracheal tube in good position along with a nasogastric tube. Trace left lower lobe patchy opacities which appear improved when compared prior exam. No pneumothorax. Dictated by: Sonido Richardson MD on 06/15/2018 at 06:59 PM Medication Reconciliation Scheduled Apixaban (Eliquis), 5 MG PO DAILY24, (Reported) Cholecalciferol (Vitamin D3) (Vitamin D), 5,000 UNIT PO Q7D, (Reported) Fluoxetine Hcl (Fluoxetine Hcl), 1 CAP PO DAILY, (Reported) Fluticasone/Salmeterol (Advair 250-50 Diskus), 1 PUFF IH BID, (Reported) Furosemide (Furosemide), 1 TAB PO PRN, (Reported) Lisinopril (Lisinopril), 1 TAB PO DAILY, (Reported) Metformin Hcl (Metformin Hcl), 1 TAB PO BID, (Reported) Metoprolol Succinate (Metoprolol Succinate), 1 TAB PO DAILY, (Reported) Oxybutynin Chloride (Oxybutynin Chloride), 1 TAB PO BID, (Reported) Pravastatin Sodium (Pravachol), 1 TAB PO HS, (Reported) Terazosin Hcl (Terazosin Hcl), 0.5 CAP PO HS, (Reported) Scheduled PRN Fluticasone Propionate (Fluticasone Propionate), 1 SPR NA HS PRN for CONGESTION, (Reported) Ipratropium [place] (Atrovent Hfa), 2 PUFF IH Q6HR PRN for SHORTNESS OF BREATH, (Reported) Assessment/Plan Assessment/Plan Assessment/Plan Acute hypoxic respiratory failure requiring mechanical ventilation. Aspiration after choking on Dinner. Pulseless electrical activity after aspiration and asphyxiation Hypokalemia Hypomagnesemia Hypocalcemia Generalised twitching Vs seizures Community Acquired pneumonia Aspiration Pna Acute on chronic systolic CHF History of COPD Diabetes mellitus Hypoalbuminemia Mild protein calorie malnutrition Plan Patient transferred to the ICU intubated and on mechanical ventilation. Patient currently DNR but already intubated. Antibiotics changed from Rocephin and Zithromax to Zosyn. IV hydration as required. Get a head CT today, replace magnesium, calcium, and potassium. Start patient on Cardizem drip for hypertensive urgency and severe tachycardia If fever, send blood cultures. Continue Keppra twice a day. Continue Ativan when necessary Blood and Ur cx Neg so far Hyperglycemic protocol. A1C 5.8 GI prophylaxis DVT prophylaxis. ANA YOUNG DO Jun 16, 2018 09:19
[2018-06-16] MEDS ORDERED: KCL 20MEQ/100ML 200 ML IV STA (09:39)
[2018-06-16] MEDS ORDERED: CALCIUM CHLORIDE IV STA (09:39)
[2018-06-16] MEDS ORDERED: CARDIZEM 125 MG in NS 100ML 100 ML IV ONE (10:00)
[2018-06-16] MEDS ORDERED: MAGNESIUM SULFATE 50 ML IV ONE ×2 (10:00→12:35)
--- NOTE | 2018-06-16 10:05 | NUR ---
O2 40 % WITH PEEP OF 5 PER XAVIER RT.
--- NOTE | 2018-06-16 11:08 | DIREP ---
PROCEDURE:CT HEAD OR BRAIN W/O CONTRAST COMPARISON:[facility] and Spiral CT, CT, CT HEAD BRAIN W/O CONTRAST, 03/29/2017, 03:31 PM. INDICATIONS:seizure, code blue TECHNIQUE:Axial CT images were obtained from vertex to the skull base without the administration of IV contrast. FINDINGS: VENTRICLES: Commensurate with stable ydlj-dg-uyzsxlgx volume loss. No hydrocephalus. CEREBRUM: Stable zwyb-ow-tysceipx atrophy. Stable moderate chronic small vessel white matter ischemic changes. Stable remote lacunar infarctions involving the right caudate body, anterior limb of the internal capsule, and lentiform nucleus. Stable small remote lacunar infarctions involving the anterior limb of the left internal capsule and left lentiform nucleus. No intracranial hemorrhage, mass-effect, or midline shift. No CT evidence of acute infarction. CEREBELLUM: Stable tlgg-ps-xwswpqpz atrophy. Otherwise unremarkable. BRAINSTEM: Normal. BASAL CISTERNS: Normal. SKULL: Normal. No fracture. SINUSES: Normal. Visualized paranasal sinuses and mastoid air cells are clear. OTHER: No significant scalp swelling. Stable calcified plaque in the carotid siphons. CONCLUSION: 1. No acute intracranial abnormality. There is no significant change as compared with the previous examination. 2. Stable avji-ea-xnebdhsl generalized atrophy. 3. Stable moderate chronic small vessel white matter ischemic changes with stable remote bilateral lacunar infarctions, as above. Dictated by: Maikel Cuello MD on 06/16/2018 at 11:03 AM
[2018-06-16] MEDS: DITROPAN PO SCH ×2 (11:50→19:55)
[2018-06-16] MEDS: ELIQUIS PO SCH (11:50)
[2018-06-16] MEDS ORDERED: CALCIUM CHLORIDE IV ONE (12:36)
--- NOTE | 2018-06-16 15:13 | DIET.OP ---
Nutrition Asmt/Malnutrit 2-17 Nutritional Screening: Malnutr/Diet Consult Diagnosis: Shortness of Breath Pertinent Medical Hx/Surgical: Per MD: CHF, COPD, and diabetes Subjective Information: Patient is currently on a mechanical ventilator and has been since the night of 06/15/18. The patient has DM type 2 and his sugars were in the 300s on 06/15/18. All other information regarding diet and weight are unclear at this time. Will follow up with any family that may come to visit to try and retreive this information. Current Diet Order/Nutrition S: NPO Pertinent Meds Current Medications Medications (Trade) Dose Ordered Sig/Isabel PRN Reason Start Time Stop Time Status Last Admin Acetaminophen (Ofirmev) 1,000 mg Q8H 06/15/18 20:00 07/15/18 19:59 06/16/18 03:29 Acetaminophen (Tylenol) 1,000 mg Q6H PRN PAIN MILD 06/14/18 07:30 07/14/18 07:29 Albuterol/ Ipratropium (Duoneb 0.5 Mg-3 Mg/3 ml Soln) 3 ml RTQ4 PRN WHEEZING 06/14/18 07:30 07/14/18 07:29 Albuterol/ Ipratropium (Duoneb 0.5 Mg-3 Mg/3 ml Soln) 3 ml RTQ6 06/14/18 03:00 07/14/18 02:59 06/16/18 14:05 Atorvastatin Calcium (Lipitor) 5 mg HS 06/14/18 21:00 07/14/18 20:59 06/14/18 20:55 Cholecalciferol (Vitamin D) 5,000 unit Q7D 06/14/18 07:30 07/14/18 07:29 Dextrose (Dextrose 50%-Water Syringe) 25 ml STAT PRN HYPOGLYCEMIA 06/14/18 07:30 07/14/18 07:29 Fluoxetine HCl (Prozac) 10 mg DAILY 06/14/18 09:00 07/14/18 08:59 06/15/18 08:24 Furosemide (Lasix) 40 mg DAILY 06/14/18 10:00 06/20/18 10:00 06/16/18 05:20 Guaifenesin (Mucinex) 600 mg BID 06/14/18 09:00 07/14/18 08:59 06/15/18 08:24 Insulin Human Regular (Humulin R) Give 30 minutes before meal ACHS 06/14/18 07:30 07/14/18 07:29 06/14/18 07:30 Levetiracetam (Keppra) 500 mg Q8 06/15/18 22:00 07/15/18 21:59 06/16/18 06:16 Lorazepam (Ativan) 2 mg Q4HR PRN AGITATION 06/15/18 20:30 07/15/18 20:29 06/15/18 20:31 Methylprednisolone Sodium Succinate (Solu-Medrol) 40 mg Q12HR 06/14/18 09:00 06/17/18 09:01 06/14/18 09:11 Metoprolol Succinate (Toprol Xl) 50 mg DAILY 06/14/18 09:00 07/14/18 08:59 Future Hold 06/15/18 08:23 Metoprolol Tartrate (Lopresser) 5 mg Q2 PRN HYPERTENSION 06/16/18 04:30 07/16/18 04:29 06/16/18 08:09 Ondansetron HCl (Zofran) 4 mg Q4H PRN NAUSEA / VOMITING 06/14/18 07:30 07/14/18 07:29 Oxybutynin Chloride (Ditropan) 5 mg BID 06/14/18 09:00 07/14/18 08:59 06/16/18 11:50 Pantoprazole Sodium (Protonix) 40 mg DAILY 06/14/18 09:00 07/14/18 08:59 06/15/18 08:24 Piperacillin Sod/ Tazobactam Sod 3.375 gm/Sodium Chloride 100 ml @ 100 mls/hr Q6H 06/16/18 04:30 07/16/18 04:29 06/16/18 12:21 Potassium Chloride (Klor-Con 10) 20 meq STAT 06/15/18 14:00 07/15/18 13:59 Propofol (Diprivan) 200 mg PRN PRN SEDATION 06/15/18 20:30 07/15/18 20:29 06/15/18 20:45 Terazosin HCl (Hytrin) 1 mg HS 06/14/18 21:00 07/14/18 20:59 06/14/18 20:55 Pertinent Labs Laboratory Tests 06/15/18 18:30: White Blood Count 14.3H, Red Blood Count 3.46L, Hemoglobin 10.5L, Hematocrit 33.9L, Mean Corpuscular Volume 98.0, Mean Corpuscular Hemoglobin 30.3, Mean Corpuscular Hemoglobin Concent 31.0L, Red Cell Distribution Width 15.5H, Platelet Count 264, Mean Platelet Volume 9.7, Neutrophils (%) (Auto) 91.4*H, Lymphocytes (%) (Auto) 4.8*L, Monocytes (%) (Auto) 2.0L, Neutrophils # (Auto) 13.0H, Lymphocytes # (Auto) 0.7L, Monocytes # (Auto) 0.3, Absolute Immature Granulocyte (auto 0.21, Eosinophils % 0.2, Basophils % 0.1, Basophils # 0.0, Eosinophil Count 0.0, Sodium Level 138, Potassium Level 4.4, Chloride Level 98.0 , Carbon Dioxide Level 22.2, Anion Gap 22.2, Blood Urea Nitrogen 45H, Creatinine 2.01*H, Estimated GFR () 39.5, BUN/Creatinine Ratio 22.0, Glucose Level 304H, Calcium Level 7.6L, Magnesium Level 1.7L, Total Bilirubin 0.3, Aspartate Amino Transf (AST/SGOT) 485H, Alanine Aminotransferase (ALT/SGPT) 359H, Alkaline Phosphatase 113, Total Protein 6.6, Albumin 2.7L, Globulin 3.9, Percent Immature Gran (Cell Imm) 1.50H 06/15/18 19:14: Blood Gas Sample Site RT BRACIAL ARTERY, Blood Gas pH 7.319L, Blood Gas PCO2 49.6H, Blood Gas PO2 405.2H, Blood Gas HCO3 24.9, Blood Gas Base Excess -1.6, Ben Test N/A, Arterial Blood Oxygen Saturation 99.7, Deoxyhemoglobin 0.3, Carboxyhemoglobin 0.2L, Methemoglobin 0.6, Total Hemoglobin 12.0L, Total Oxygen Concentration 17.8H, Lactic Acid (Blood Gas) 4.9*H, Blood Gas Temperature 37.0, Oxygen Delivery Method (LAB) VENT, Blood Gas Vent Mode AC, Blood Gas Vent Rate 14, FiO2 100, Blood Gas Tidal Volume 500, Blood Gas PEEP 6.0, Bicarbonate 26.4 06/16/18 04:52: White Blood Count 19.4H, Red Blood Count 3.71L, Hemoglobin 11.3L, Hematocrit 35.1L, Mean Corpuscular Volume 94.6, Mean Corpuscular Hemoglobin 30.5, Mean Corpuscular Hemoglobin Concent 32.2L, Red Cell Distribution Width 15.8H, Platelet Count 285, Mean Platelet Volume 9.5, Neutrophils (%) (Auto) 95.4*H, Lymphocytes (%) (Auto) 1.3*L, Monocytes (%) (Auto) 2.8L, Neutrophils # (Auto) 18.5H, Lymphocytes # (Auto) 0.3L, Monocytes # (Auto) 0.6, Absolute Immature Granulocyte (auto 0.08, Eosinophils % 0.0, Basophils % 0.1, Basophils # 0.0, Eosinophil Count 0.0, Sodium Level 140, Potassium Level 3.4L, Chloride Level 100.0, Carbon Dioxide Level 25.5, Anion Gap 17.9, Blood Urea Nitrogen 52H, Creatinine 1.67H, Estimated GFR () 48.9, BUN/Creatinine Ratio 31.0, Glucose Level 184H, Calcium Level 7.7L, Magnesium Level 1.6L, Percent Immature Gran (Cell Imm) 0.40 06/16/18 05:36: Differential Total Cells Counted 100, Segmented Neutrophils 69, Band Neutrophils 20H, Lymphocytes 2L, Monocytes 4, Metamyelocytes 2, Atypical Lymphocytes 1 Height (Feet): 4 Height (Inches): 10 Current Weight: 116 %IBW: 123 Weight Status: Appropriate Food Allergies: No Current %PO: NPO BEE in Kcals: Use Current Weight Calories/Kcals/Kg: MsJ * 1.2-1.3 Kcals Calculated: 4636-7063 Protein: Use Current Weight Protein g/k-20% of 1400 ADA Protein Calculated: 53g-70g Fluid: ml: 7912-7943 or 1 mL/kcal Nutritional Problem: Nutr. Problems Present Problems: Inadequate energy intake Etiology: mechanical ventilation Signs/Symptoms: NPO status Body Fat Depletion (Severe): Mod to Severe Depletion Muscle Mass (Severe): Mod to Severe Depletion Protein-Calorie Malnutrition: Severe Is there a minimum of two crit: Yes RD Comments: CHO needs: 45-55% of 1400 ADA diet or 158g-193g daily Intervention: 1. Communicate with medical team to determine the best nutritional plan for the patient moving forward Monitor/evaluate 1. Weight status 2. Ventilator status Expected Outcomes Goal: 1. Come up with a plan to best deliver the patient will the nutrition he needs to meet 100% of estimated energy needs Discharge plan: 1. Discharge planning in progress Malnutrtion/Nutrition Risk Edu: Yes KATY KIRBY RD Jun 16, 2018 15:13
[2018-06-16] MEDS: NS IV NR (16:19)
[2018-06-16] MEDS: KEPPRA IV NR (16:19)
[2018-06-16 16:30] LABS: ABG PCO2 38.3 mmHg (35.0-45.0); ABG PH 7.488 (7.350-7.450); BE(B) 4.9 mmol/L (-2.0-2.0); HCO3act 28.4 mmol/L (22.0-26.0); pO2 98.1 mmHg (75.0-100.0)
--- NOTE | 2018-06-16 19:00 | NUR ---
RECEIVED REPORT FROM AM SHIFT ASSUMED CARE. SEE ASSESSMENT
[2018-06-16] MEDS ORDERED: DIPRIVAN 100 ML IV ONE (19:09)
[2018-06-16] MEDS: DIPRIVAN IV PRN (19:23)
[2018-06-16] MEDS ORDERED: CARDIZEM IV ONE (19:25)
[2018-06-16] MEDS ORDERED: HYTRIN PO ONE (19:48)
[2018-06-16] MEDS: HYTRIN PO SCH (19:54)
[2018-06-16] MEDS: LIPITOR PO SCH (19:56)
[2018-06-16] MEDS: LOPRESSER PO SCH (19:56)
[2018-06-16] MEDS ORDERED: NS 500ML 500 ML IV ONE (20:27)
--- NOTE | 2018-06-16 21:42 | NUR ---
EARLY MOBILITY ASSESSMENT: EXCLUDED PT IS VENTILATED/ SEDATED
[2018-06-17] VITALS (51 sets, daily range): BP systolic 123–175; BP diastolic 51–91
[2018-06-17] MEDS: NS IV NR ×3 (00:17→16:11)
[2018-06-17] MEDS: KEPPRA IV NR ×3 (00:17→16:11)
--- NOTE | 2018-06-17 00:47 | NUR ---
EARLY MOBILITY ASSESSMENT: EXCLUDED PT IS VENTILATED Addendum: 06/18/18 at 0049 by Kyleigh Rayo RN- EMAIL MARKETING ASSISTANT 06/17/18 1930
[2018-06-17] MEDS ORDERED: NS 100ML 100 ML IV ONE ×2 (01:43→12:24)
[2018-06-17] MEDS: DUONEB 0.5 MG-3 MG/3 ML SOLN IH SCH ×4 (03:00→20:55)
[2018-06-17] MEDS: LOPRESSER IVP PRN (04:07)
[2018-06-17] MEDS: ZOSYN 3.375 GRAM VIAL 3.375 GM in NS 100ML 100 ML IV SCH ×2 (04:09→10:30)
[2018-06-17 05:32] LABS: ABG PCO2 34.5 mmHg (35.0-45.0); ABG PH 7.531 (7.350-7.450); BE(B) 5.7 mmol/L (-2.0-2.0); HCO3act 28.2 mmol/L (22.0-26.0); pO2 94.4 mmHg (75.0-100.0)
[2018-06-17 05:45] LABS: BASOPHIL % 0.1 % (0.0-0.2); HEMOGLOBIN 13.6 g/dL (13.9-16.3); LYMPHOCYTES # 0.4 10^3/uL (1.0-4.8); LYMPHOCYTES % 2.3 % (24.0-44.0); MEAN CELL HGB 30.5 pg (26-34); MEAN CELL HGB CONCENTRATION 32.2 g/dL (33-37); MEAN CORP VOLUME 94.8 fL (78-100); MEAN PLATELET VOLUME 9.8 fL (7.8-11.0); MONOCYTES # 0.4 10^3/uL (0.3-0.8); MONOCYTES % 2.2 % (5.0-12.0); NEUTROPHIL # 16.8 10^3/uL (1.8-7.7); NEUTROPHILS % 95.1 % (41.0-85.0); RED CELL DISTRIBUTION WIDTH 16.2 % (11.5-14.5); WHITE BLOOD CELL 17.7 10^3/uL (4.5-11.0)
--- NOTE | 2018-06-17 05:57 | NUR ---
FEBRILE RECTAL TEMP 100.9, HR 119 BPM. RECEIVED ORDER FOR ACETAMINOPHEN SUPPOSITORY 650 MG Q4 PRN FROM DR YOUNG. EMILE
--- NOTE | 2018-06-17 05:59 | NUR ---
NOTIFIED DR YOUNG FOR ABG RESULTS
--- NOTE | 2018-06-17 06:00 | NUR ---
CHG BATH RENDERED ACCORDINGLY. ORAL CARE, JAMAL/UGALDE CARE DONE.
[2018-06-17 06:01] LABS: CALCIUM 8.8 mg/dL (8.4-10.5); CARBON DIOXIDE 29.2 mmol/L (20.0-32)
[2018-06-17] MEDS: TYLENOL RC PRN (06:04)
[2018-06-17] MEDS ORDERED: KCL 20 MEQ/100 ML IV ONE (06:43)
[2018-06-17] MEDS ORDERED: KCL 20MEQ/100ML 100 ML IV ONE (07:00)
--- NOTE | 2018-06-17 07:00 | NUR ---
RECEIVED REPORT AND PATIENT CARE ASSUMED.
--- NOTE | 2018-06-17 07:11 | NUR ---
REPORT TO AM SHIFT DONE. ENDORSED PATIENT ACCORDINGLY
[2018-06-17] MEDS: HUMULIN R SQ SCH ×4 (07:30→20:51)
[2018-06-17] MEDS: LOPRESSER PO SCH ×2 (08:16→21:00)
[2018-06-17] MEDS: DITROPAN PO SCH ×2 (08:16→21:00)
[2018-06-17] MEDS: MUCINEX PO SCH ×2 (08:16→21:00)
[2018-06-17] MEDS: ELIQUIS PO SCH (08:16)
[2018-06-17] MEDS: PROTONIX PO SCH (08:16)
[2018-06-17] MEDS: LASIX IV SCH (08:17)
[2018-06-17] MEDS: TYLENOL PO PRN ×2 (08:22→18:15)
--- NOTE | 2018-06-17 08:45 | NUR ---
HR ELEVATED TO 140-150 AFTER DUONEB BP DROPPED TO 85/64, PROPOFOL STOPPED AT THIS TIME.
[2018-06-17] MEDS ORDERED: POTASSIUM CHLORIDE IV ONE (09:00)
[2018-06-17] MEDS: PROZAC PO SCH (09:00)
--- NOTE | 2018-06-17 09:00 | NUR ---
HR DECREASED TO 98, TELEMONITOR READING A FLUTTER. BP 107/70
--- NOTE | 2018-06-17 09:52 | NUR ---
VENT CHANGED TO SPONTANEOUS DR. YOUNG/KRAIG RT AT BEDSIDE. DR. YOUNG ASSESSED PATIENT, PATIENT NONRESPONSIVE TO PAIN STIMULI. POA AT BEDSIDE. NEWS, SEE EMAR.
--- NOTE | 2018-06-17 10:34 | PRM.PN ---
Subjective Subjective Date: Jun 17, 2018 Time: 10:26 Subjective Patient seen in the ICU and still on the ventilator this morning. He was taken off sedation about 2 or 3 hours prior to my evaluation. The patient is breathing over the vent but is not responsive to painful stimulus. He is currently on CPAP and respiration is irregular and in the 40s. Power of bankruptcy attorney was at bedside and we explained to him that this will ,omitoring with continue and if patient's appears to be tiring out will be placed back on the ventilator and a head CT will be rechecked tomorrow. Patient History: Throat cancer 32 FATHER Unknown Objective Vitals and I/O Laboratory Tests Test 06/16/18 16:18 06/17/18 05:20 06/17/18 05:23 Blood Gas Sample Site LEFT RADIAL ARTERY LEFT RADIAL ARTERY Blood Gas pH 7.488 7.531 Blood Gas PCO2 38.3 mmHg 34.5 mmHg Blood Gas PO2 98.1 mmHg 94.4 mmHg Blood Gas HCO3 28.4 mmol/L 28.2 mmol/L Blood Gas Base Excess 4.9 mmol/L 5.7 mmol/L Ben Test POSITIVE POSITIVE Arterial Blood Oxygen Saturation 97.4 % 97.5 % Alveolar-arterial Oxygen Gradient NA Deoxyhemoglobin 2.6 % 2.5 % Carboxyhemoglobin 0.8 % 0.7 % Methemoglobin 0.5 % 0.4 % Total Hemoglobin 14.0 % 14.0 % Total Oxygen Concentration 19.0 % 19.1 % Lactic Acid (Blood Gas) 2.1 MMOL/L 1.9 MMOL/L Blood Gas Temperature 37 Oxygen Delivery Method (LAB) 840 VENT MV Blood Gas Vent Mode AC AC Blood Gas Vent Rate 14 14 FiO2 40 % 40 % Blood Gas Tidal Volume 500 ML 500 ML Blood Gas PEEP 5.0 CMH2O 5 CMH2O Blood Gas Pressure Support 0 CMH2O Bicarbonate 29.6 mmol/L 29.3 mmol/L White Blood Count 17.7 10^3/uL Red Blood Count 4.46 10^6/uL Hemoglobin 13.6 g/dL Hematocrit 42.3 % Mean Corpuscular Volume 94.8 fL Mean Corpuscular Hemoglobin 30.5 pg Mean Corpuscular Hemoglobin Concent 32.2 g/dL Red Cell Distribution Width 16.2 % Platelet Count 247 10^3/uL Mean Platelet Volume 9.8 fL Neutrophils (%) (Auto) 95.1 % Lymphocytes (%) (Auto) 2.3 % Monocytes (%) (Auto) 2.2 % Neutrophils # (Auto) 16.8 10^3/uL Lymphocytes # (Auto) 0.4 10^3/uL Monocytes # (Auto) 0.4 10^3/uL Absolute Immature Granulocyte (auto 0.05 10^3 u/L Eosinophils % 0.0 % Basophils % 0.1 % Basophils # 0.0 10^3/uL Eosinophil Count 0.0 10^3/uL Sodium Level 147 mmol/L Potassium Level 2.8 mmol/L Chloride Level 105.0 mmol/L Carbon Dioxide Level 29.2 mmol/L Anion Gap 15.6 Blood Urea Nitrogen 46 mg/dL Creatinine 1.76 mg/dL Estimated GFR () 46.0 BUN/Creatinine Ratio 26.0 Glucose Level 185 mg/dL Calcium Level 8.8 mg/dL Magnesium Level 2.2 mg/dL Total Bilirubin 0.5 mg/dL Aspartate Amino Transf (AST/SGOT) 190 U/L Alanine Aminotransferase (ALT/SGPT) 251 U/L Alkaline Phosphatase 101 U/L Total Protein 7.6 g/dL Albumin 2.5 g/dL Globulin 5.1 Percent Immature Gran (Cell Imm) 0.30 % Current Medications Medications (Trade) Dose Ordered Sig/Isabel Route PRN Reason Start Time Stop Time Status Last Admin Dose Admin Methylprednisolone Sodium Succinate (Solu-Medrol) 125 mg STAT STAT IV 06/13/18 22:00 06/13/18 22:03 DC 06/13/18 22:36 Albuterol/ Ipratropium (Duoneb 0.5 Mg-3 Mg/3 ml Soln) 3 ml STAT STAT IH 06/13/18 22:00 06/13/18 22:03 DC 06/13/18 22:11 Dexamethasone Sodium Phosphate (Decadron) 4 mg STAT STAT IH 06/13/18 22:00 06/13/18 22:03 DC 06/13/18 22:11 Albuterol/ Ipratropium (Duoneb 0.5 Mg-3 Mg/3 ml Soln) 3 ml STK-MED ONCE IH 06/13/18 22:02 06/13/18 22:04 DC Dexamethasone Sodium Phosphate (Decadron) 4 mg STK-MED ONCE .ROUTE 06/13/18 22:02 06/13/18 22:04 DC Methylprednisolone Sodium Succinate (Solu-Medrol) 125 mg STK-MED ONCE .ROUTE 06/13/18 22:29 06/13/18 22:31 DC Ceftriaxone Sodium 1000 mg/ Sodium Chloride 100 ml @ 100 mls/hr OT STAT IV 06/13/18 22:46 06/13/18 23:45 DC 06/13/18 22:52 Sodium Chloride 100 ml @ ud STK-MED ONCE IV 06/13/18 22:50 06/13/18 22:52 DC Ceftriaxone Sodium (Rocephin) 1,000 mg STK-MED ONCE .ROUTE 06/13/18 22:50 06/13/18 22:52 DC Methylprednisolone Sodium Succinate (Solu-Medrol) 60 mg Q8HR IV 06/14/18 05:00 06/14/18 07:12 DC 06/14/18 05:25 Albuterol/ Ipratropium (Duoneb 0.5 Mg-3 Mg/3 ml Soln) 3 ml RTQ6 06/14/18 06:00 06/14/18 06:00 DC Furosemide (Lasix) 40 mg STAT STAT IV 06/13/18 23:30 06/13/18 23:36 DC 06/14/18 00:11 Albuterol/ Ipratropium (Duoneb 0.5 Mg-3 Mg/3 ml Soln) 3 ml RTQ6 06/14/18 03:00 07/14/18 02:59 06/17/18 08:33 Furosemide (Lasix) 40 mg STK-MED ONCE .ROUTE 06/14/18 00:11 06/14/18 00:13 DC Methylprednisolone Sodium Succinate (Solu-Medrol) 40 mg Q12HR IV 06/14/18 09:00 06/17/18 09:01 DC 06/14/18 09:11 Acetaminophen (Tylenol) 1,000 mg Q6H PRN PO PAIN MILD 06/14/18 07:30 07/14/18 07:29 06/17/18 08:22 Ondansetron HCl (Zofran) 4 mg Q4H PRN IV NAUSEA / VOMITING 06/14/18 07:30 07/14/18 07:29 Pantoprazole Sodium (Protonix) 40 mg DAILY PO 06/14/18 09:00 07/14/18 08:59 06/17/18 08:16 Albuterol/ Ipratropium (Duoneb 0.5 Mg-3 Mg/3 ml Soln) 3 ml RTQ4 PRN IH WHEEZING 06/14/18 07:30 07/14/18 07:29 Ceftriaxone Sodium 1000 mg/ Sodium Chloride 100 ml @ 100 mls/hr Q24HRS IV 06/14/18 07:30 06/14/18 08:01 DC Azithromycin 500 mg/Sodium Chloride 250 ml @ 175 mls/hr Q24HRS ONCE IV 06/14/18 07:30 06/14/18 08:55 DC 06/14/18 07:44 Azithromycin (Zithromax) 250 mg DAILY PO 06/15/18 09:00 06/16/18 04:07 DC 06/15/18 08:24 Guaifenesin (Mucinex) 600 mg BID PO 06/14/18 09:00 07/14/18 08:59 06/17/18 08:16 Furosemide (Lasix) 40 mg DAILY IV 06/14/18 10:00 06/20/18 10:00 06/17/18 08:17 Insulin Human Regular (Humulin R) Give 30 minutes before meal ACHS SQ 06/14/18 07:30 07/14/18 07:29 06/14/18 07:30 Dextrose (Dextrose 50%-Water Syringe) 25 ml STAT PRN IV HYPOGLYCEMIA 06/14/18 07:30 07/14/18 07:29 Enoxaparin Sodium (Lovenox) 30 mg DAILY SQ 06/14/18 09:00 06/14/18 09:00 DC Cholecalciferol (Vitamin D) 5,000 unit Q7D PO 06/14/18 07:30 07/14/18 07:29 Fluoxetine HCl (Prozac) 10 mg DAILY PO 06/14/18 09:00 07/14/18 08:59 06/15/18 08:24 Metoprolol Succinate (Toprol Xl) 50 mg DAILY PO 06/14/18 09:00 06/16/18 20:28 DC 06/15/18 08:23 Oxybutynin Chloride (Ditropan) 5 mg BID PO 06/14/18 09:00 07/14/18 08:59 06/17/18 08:16 Atorvastatin Calcium (Lipitor) 5 mg HS PO 06/14/18 21:00 07/14/18 20:59 06/16/18 19:56 Terazosin HCl (Hytrin) 1 mg HS PO 06/14/18 21:00 07/14/18 20:59 06/16/18 19:54 Sodium Chloride 100 ml @ ud STK-MED ONCE IV 06/14/18 07:38 06/14/18 07:40 DC Ceftriaxone Sodium 1000 mg/ Sodium Chloride 100 ml @ 100 mls/hr Q24HRS IV 06/14/18 21:00 06/15/18 09:35 DC Ceftriaxone Sodium 1000 mg/ Sodium Chloride 100 ml @ 100 mls/hr Q24HRS IV 06/15/18 10:00 06/16/18 04:07 DC 06/15/18 10:26 Sodium Chloride 100 ml @ ud STK-MED ONCE IV 06/15/18 10:23 06/15/18 10:25 DC Potassium Chloride (Potassium Chloride) 40 meq STAT STAT PO 06/15/18 13:58 06/15/18 14:05 DC 06/15/18 16:43 Potassium Chloride (Klor-Con 10) 20 meq STAT PO 06/15/18 14:00 07/15/18 13:59 Albumin Human (Buminate 25%) 100 ml STAT STAT IV 06/15/18 13:59 06/15/18 14:05 DC 06/15/18 16:43 Potassium Chloride (Potassium Chloride) 40 meq STK-MED ONCE .ROUTE 06/15/18 16:40 06/15/18 16:41 DC Albumin Human 100 ml @ ud STK-MED ONCE IV 06/15/18 16:40 06/15/18 16:41 DC Methylprednisolone Sodium Succinate (Solu-Medrol) 80 mg STAT STAT IV 06/15/18 17:29 06/15/18 20:56 DC 06/15/18 17:29 Furosemide (Lasix) 40 mg STAT STAT IV 06/15/18 17:35 06/15/18 20:53 DC Hydralazine HCl (Apresoline) 20 mg STK-MED ONCE .ROUTE 06/15/18 17:43 06/15/18 17:44 DC Sterile Water (Water) 1,000 ml STK-MED ONCE .ROUTE 06/15/18 18:30 06/15/18 18:31 DC Sodium Chloride 500 ml @ ud STK-MED ONCE IV 06/15/18 18:42 06/15/18 18:43 DC Acetaminophen (Ofirmev) 1,000 mg Q8H IV 06/15/18 20:00 06/17/18 06:09 DC 06/16/18 03:29 Lorazepam (Ativan) 2 mg STK-MED ONCE .ROUTE 06/15/18 20:00 06/15/18 20:02 DC Propofol 100 ml @ ud STK-MED ONCE IV 06/15/18 20:04 06/15/18 20:06 DC Lorazepam (Ativan) 2 mg Q4HR PRN IV AGITATION 06/15/18 20:30 07/15/18 20:29 06/15/18 20:31 Propofol (Diprivan) 200 mg PRN PRN IV SEDATION 06/15/18 20:30 07/15/18 20:29 06/16/18 19:23 Levetiracetam (Keppra) 500 mg Q8 IV 06/15/18 22:00 06/16/18 15:46 DC 06/16/18 06:16 Propofol 100 ml @ ud STK-MED ONCE IV 06/15/18 22:53 06/15/18 22:54 DC Sodium Chloride 100 ml @ ud STK-MED ONCE IV 06/15/18 23:10 06/15/18 23:12 DC Piperacillin Sod/ Tazobactam Sod 3.375 gm/Sodium Chloride 100 ml @ 100 mls/hr Q6H IV 06/16/18 04:30 07/16/18 04:29 06/17/18 04:09 Metoprolol Tartrate (Lopresser) 5 mg Q2 PRN IVP HYPERTENSION 06/16/18 04:30 07/16/18 04:29 06/17/18 04:07 Sodium Chloride 100 ml @ ud STK-MED ONCE IV 06/16/18 04:07 06/16/18 04:09 DC Piperacillin Sod/ Tazobactam Sod (Zosyn 3.375 Gram Vial) 3.375 gm STK-MED ONCE IV 06/16/18 04:07 06/16/18 04:09 DC Sodium Chloride 100 ml @ ud STK-MED ONCE IV 06/16/18 05:23 06/16/18 05:25 DC Potassium Chloride 200 ml @ 50 mls/hr OT STAT IV 06/16/18 09:39 06/16/18 13:38 DC 06/16/18 09:39 Diltiazem HCl 125 mg/Sodium Chloride 125 ml @ 0 mls/hr OT ONCE IV 06/16/18 10:00 06/16/18 10:26 DC 06/16/18 11:50 Calcium Chloride (Calcium Chloride) 1,000 mg STAT STAT IV 06/16/18 09:39 06/16/18 10:26 DC 06/16/18 09:39 Magnesium Sulfate 50 ml @ 50 mls/hr OT ONCE IV 06/16/18 10:00 06/16/18 10:59 DC 06/16/18 15:06 Magnesium Sulfate 50 ml @ ud STK-MED ONCE IV 06/16/18 12:35 06/16/18 12:37 DC Calcium Chloride (Calcium Chloride) 1,000 mg STK-MED ONCE IV 06/16/18 12:36 06/16/18 12:38 DC Levetiracetam 500 mg/Sodium Chloride 105 ml @ 100 mls/hr Q8H IV 06/16/18 16:00 07/16/18 15:59 06/17/18 00:17 Metoprolol Tartrate (Lopresser) 25 mg BID PO 06/16/18 21:00 07/16/18 20:59 06/17/18 08:16 Sodium Chloride 100 ml @ ud STK-MED ONCE IV 06/16/18 19:09 06/16/18 19:10 DC Propofol 100 ml @ ud STK-MED ONCE IV 06/16/18 19:09 06/16/18 19:11 DC Terazosin HCl (Hytrin) 2 mg STK-MED ONCE PO 06/16/18 19:48 06/16/18 19:49 DC Sodium Chloride 500 ml @ ud STK-MED ONCE IV 06/16/18 20:27 06/16/18 20:29 DC Sodium Chloride 100 ml @ ud STK-MED ONCE IV 06/17/18 01:43 06/17/18 01:44 DC Acetaminophen (Tylenol) 650 mg Q4HR PRN RC PAIN 06/17/18 06:00 07/17/18 05:59 06/17/18 06:04 Acetaminophen (Ofirmev) 1,000 mg Q8H PRN IV FEVER 06/17/18 06:30 07/17/18 06:29 Potassium Chloride 400 ml @ ud STK-MED ONCE IV 06/17/18 06:43 06/17/18 06:45 DC Potassium Chloride 100 ml @ 50 mls/hr OT ONCE IV 06/17/18 07:00 06/17/18 08:34 DC 06/17/18 06:58 Potassium Chloride 50 ml @ 25 mls/hr OT ONCE IV 06/17/18 09:00 06/17/18 10:59 General: Other (patient's remains on the ventilator this morning. He is unresponsive without sedation. However he is breathing over the vent.) HEENT: Other (Pupils are pinpoints but not responsive to light) Neck: Supple, No JVD Lungs: Clear to auscultation, Normal air movement Heart: Regular rate, Normal S1, Normal S2 Abdomen: Normal bowel sounds, Soft Extremities: No clubbing, No cyanosis, No edema Skin: No rashes, No breakdown Neuro: Other (patient is unresponsive) Medication Reconciliation Scheduled Apixaban (Eliquis), 5 MG PO DAILY24, (Reported) Cholecalciferol (Vitamin D3) (Vitamin D), 5,000 UNIT PO Q7D, (Reported) Fluoxetine Hcl (Fluoxetine Hcl), 1 CAP PO DAILY, (Reported) Fluticasone/Salmeterol (Advair 250-50 Diskus), 1 PUFF IH BID, (Reported) Furosemide (Furosemide), 1 TAB PO PRN, (Reported) Lisinopril (Lisinopril), 1 TAB PO DAILY, (Reported) Metformin Hcl (Metformin Hcl), 1 TAB PO BID, (Reported) Metoprolol Succinate (Metoprolol Succinate), 1 TAB PO DAILY, (Reported) Oxybutynin Chloride (Oxybutynin Chloride), 1 TAB PO BID, (Reported) Pravastatin Sodium (Pravachol), 1 TAB PO HS, (Reported) Terazosin Hcl (Terazosin Hcl), 0.5 CAP PO HS, (Reported) Scheduled PRN Fluticasone Propionate (Fluticasone Propionate), 1 SPR NA HS PRN for CONGESTION, (Reported) Ipratropium [place] (Atrovent Hfa), 2 PUFF IH Q6HR PRN for SHORTNESS OF BREATH, (Reported) Assessment/Plan Assessment/Plan Assessment/Plan Acute hypoxic respiratory failure requiring mechanical ventilation. Probable hypoxic brain injury Aspiration after choking on Dinner. Initial pneumonia most likely secondary to aspiration Pulseless electrical activity after aspiration and asphyxiation Generalised twitching Vs seizures Worsening hypokalemia 2.8: Replace Worsening renal function from 1.67-1.76. Continue IV fluids. AST and ALTs still elevated. Albumin still decreased to 2.5. Replace albumin. Community Acquired pneumonia Aspiration Pna Acute on chronic systolic CHF History of COPD Diabetes mellitus Hypoalbuminemia Mild protein calorie malnutrition Plan Leave off sedation and leave patient on CPAP for now. If patient needs to be placed back on the ventilator later, then we will do.. Repeat head CT tomorrow morning. Continue Zosyn IV hydration as required. If fever, send blood cultures. Continue Keppra twice a day. Continue Ativan when necessary Blood and Ur cx Neg so far Hyperglycemic protocol. A1C 5.8 Patient currently DNR but already intubated. GI prophylaxis DVT prophylaxis. ANA YOUNG DO Jun 17, 2018 10:34
[2018-06-17] MEDS ORDERED: BUMINATE 25% IV STA (10:43)
[2018-06-17] MEDS ORDERED: NS 1000ML 1,000 ML IV ONE (11:00)
--- NOTE | 2018-06-17 11:20 | NUR ---
[facility] REFERRAL SPOKEN TO ALYSE ROJAS RN AND REFERRAL GIVEN. TEAM TO CALL BACK FOR FURTHER EVAL
--- NOTE | 2018-06-17 11:25 | NUR ---
[facility] CALL RETURNED, EVALUATION GIVEN
[2018-06-17] MEDS ORDERED: CARDIZEM IV ONE (12:24)
[2018-06-17] MEDS: ZOSYN 2.25GM 2.25 GM in NS 100ML 100 ML IV SCH ×2 (16:11→21:37)
[2018-06-17] MEDS: HYTRIN PO SCH (21:00)
[2018-06-17] MEDS: LIPITOR PO SCH (21:00)
[2018-06-18] VITALS (57 sets, daily range): BP systolic 73–168; BP diastolic 34–100
[2018-06-18] MEDS ORDERED: NS 1000ML 1,000 ML ONE ×2 (01:05→14:15)
[2018-06-18] MEDS: KEPPRA IV NR ×3 (01:35→17:10)
[2018-06-18] MEDS: NS IV NR ×3 (01:35→17:10)
[2018-06-18] MEDS: OFIRMEV IV PRN (02:33)
[2018-06-18] MEDS: DUONEB 0.5 MG-3 MG/3 ML SOLN IH SCH ×4 (03:01→21:00)
[2018-06-18] MEDS: ZOSYN 2.25GM 2.25 GM in NS 100ML 100 ML IV SCH ×4 (04:30→22:30)
[2018-06-18 05:11] LABS: BASOPHIL % 0.3 % (0.0-0.2); HEMOGLOBIN 10.6 g/dL (13.9-16.3); LYMPHOCYTES # 0.6 10^3/uL (1.0-4.8); LYMPHOCYTES % 4.1 % (24.0-44.0); MEAN CELL HGB 30.4 pg (26-34); MEAN CELL HGB CONCENTRATION 30.5 g/dL (33-37); MEAN CORP VOLUME 99.7 fL (78-100); MEAN PLATELET VOLUME 10.1 fL (7.8-11.0); MONOCYTES # 0.4 10^3/uL (0.3-0.8); MONOCYTES % 2.9 % (5.0-12.0); NEUTROPHIL # 12.8 10^3/uL (1.8-7.7); NEUTROPHILS % 92.3 % (41.0-85.0); RED CELL DISTRIBUTION WIDTH 16.4 % (11.5-14.5); WHITE BLOOD CELL 13.9 10^3/uL (4.5-11.0)
[2018-06-18 05:46] LABS: CALCIUM 6.4 mg/dL (8.4-10.5); CARBON DIOXIDE 22.1 mmol/L (20.0-32)
[2018-06-18] MEDS ORDERED: KCL 20MEQ/100ML 200 ML IV ONE (06:30)
--- NOTE | 2018-06-18 07:00 | NUR ---
RECEIVED REPORT AND PATIENT CARE ASSUMED.
[2018-06-18] MEDS: HUMULIN R SQ SCH ×4 (07:30→21:00)
--- NOTE | 2018-06-18 08:06 | NUR ---
DUONEB TX NOT GIVEN AT THIS TIME DUE TO HR 142
[2018-06-18] MEDS ORDERED: WATER ONE (08:28)
[2018-06-18] MEDS: TYLENOL RC PRN (08:33)
[2018-06-18] MEDS: ELIQUIS PO SCH (08:44)
[2018-06-18] MEDS: DITROPAN PO SCH ×2 (08:44→21:00)
[2018-06-18] MEDS: PROTONIX PO SCH (08:44)
[2018-06-18] MEDS: MUCINEX PO SCH ×2 (08:44→21:00)
[2018-06-18] MEDS: LOPRESSER PO SCH ×2 (08:45→21:00)
[2018-06-18] MEDS ORDERED: CALCIUM CHLORIDE IV STA (08:47)
[2018-06-18] MEDS: PROZAC PO SCH (09:00)
--- NOTE | 2018-06-18 09:09 | PRM.PN ---
Subjective Subjective Date: Jun 18, 2018 Time: 09:00 Subjective Patient is seen in the ICU this morning. Continues to be on the ventilator and unresponsive. He has been off all sedation for more than 24 hours now and still not responsive. Pupils are constricted but fixed. Patient is noted with very elevated temperature since last night treated with IV Tylenol but with little response. Hypokalemia and hypocalcemia also noted on labs this morning are corrected. 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 Patient History: Throat cancer 32 FATHER Unknown Objective Vitals and I/O Vital Sign - Last 24 Hours 06/17/18 06/17/18 06/17/18 06/17/18 09:25 09:52 10:45 11:15 Temp 38.8 101.8 Pulse 128 84 98 Resp 14 44 44 Pulse Ox 97 97 97 100 FiO2 40 40 06/17/18 06/17/18 06/17/18 06/17/18 11:20 11:30 11:30 11:40 Temp 38.7 38.7 38.7 101.7 101.7 101.7 Pulse 88 79 78 73 Resp 38 B/P (MAP) 135/60 (85) 126/62 (83) Pulse Ox 100 100 97 100 FiO2 40 06/17/18 06/17/18 06/17/18 06/17/18 11:45 12:00 12:15 12:22 Temp 38.7 38.6 38.6 38.6 101.7 101.5 101.5 101.5 Pulse 81 82 87 86 B/P (MAP) 128/55 (79) 136/60 (85) Pulse Ox 100 99 100 100 06/17/18 06/17/18 06/17/18 06/17/18 12:30 12:40 12:45 13:00 Temp 38.5 38.5 38.4 38.3 101.3 101.3 101.1 100.9 Pulse 85 84 83 83 B/P (MAP) 132/76 (94) 145/58 (87) Pulse Ox 100 100 06/17/18 06/17/18 06/17/18 06/17/18 13:14 13:15 13:18 13:20 Temp 38.2 38.2 100.8 100.8 Pulse 72 84 82 Resp 17 B/P (MAP) 157/51 (86) Pulse Ox 100 100 100 O2 Delivery Mechanical Ventilator FiO2 40 06/17/18 06/17/18 06/17/18 06/17/18 13:30 13:41 13:45 14:00 Temp 38.2 38.2 38.2 38.2 100.8 100.8 100.8 100.8 Pulse 87 82 82 76 B/P (MAP) 163/91 (115) 139/58 (85) Pulse Ox 100 100 100 06/17/18 06/17/18 06/17/18 06/17/18 14:15 14:20 14:30 14:30 Temp 38.2 38.2 38.2 100.8 100.8 100.8 Pulse 81 79 82 14 Resp 7 B/P (MAP) 142/70 (94) Pulse Ox 100 100 100 06/17/18 06/17/18 06/17/18 06/17/18 14:31 14:40 14:48 14:48 Temp 38.2 100.8 Pulse 89 84 94 Resp 18 18 18 B/P (MAP) 147/70 (95) Pulse Ox 100 100 100 100 06/17/18 06/17/18 06/17/18 06/17/18 14:52 15:00 15:20 15:30 Temp 38.2 38.2 38.2 100.8 100.8 100.8 Pulse 101 107 91 91 Resp 19 B/P (MAP) 123/56 (78) 157/67 (97) Pulse Ox 100 100 100 FiO2 40 06/17/18 06/17/18 06/17/18 06/17/18 15:40 16:00 16:20 16:30 Temp 38.2 38.4 38.4 38.5 100.8 101.1 101.1 101.3 Pulse 123 88 90 120 B/P (MAP) 159/81 (107) 145/69 (94) 165/80 (108) Pulse Ox 100 100 100 100 06/17/18 06/17/18 06/17/18 06/17/18 16:40 17:00 17:03 17:05 Temp 38.5 38.6 38.6 101.3 101.5 101.5 Pulse 89 86 88 83 Resp 22 B/P (MAP) 167/80 (109) 163/67 (99) 167/84 (111) Pulse Ox 100 100 100 100 FiO2 40 06/17/18 06/17/18 06/17/18 06/17/18 17:20 17:25 17:30 17:40 Temp 38.7 38.8 38.9 101.7 101.8 102.0 Pulse 114 82 80 B/P (MAP) 152/80 (104) 149/60 (89) Pulse Ox 100 100 100 O2 Delivery Mechanical Ventilator 06/17/18 06/17/18 06/17/18 06/17/18 18:00 18:20 18:30 18:40 Temp 39.0 39.1 39.2 39.3 102.2 102.4 102.6 102.7 Pulse 103 105 93 90 B/P (MAP) 145/79 (101) 175/70 (105) 146/84 (104) Pulse Ox 100 100 100 100 06/17/18 06/17/18 06/17/18 06/17/18 19:00 19:15 19:20 19:30 Temp 39.5 39.5 39.5 39.6 103.1 103.1 103.1 103.3 Pulse 108 102 102 102 B/P (MAP) 144/62 (89) 166/71 (102) Pulse Ox 100 100 100 100 06/17/18 06/17/18 06/17/18 06/17/18 19:40 19:45 20:00 20:00 Temp 39.6 39.6 39.6 103.3 103.3 103.3 Pulse 102 102 89 97 Resp 14 B/P (MAP) 159/54 (89) 153/69 (97) Pulse Ox 100 100 100 100 FiO2 40 06/17/18 06/17/18 06/17/18 06/17/18 20:00 20:00 20:15 20:20 Temp 39.6 39.6 103.3 103.3 Pulse 102 107 84 Resp 14 B/P (MAP) 147/82 (103) Pulse Ox 100 100 O2 Delivery Mechanical Ventilator 06/17/18 06/17/18 06/17/18 06/17/18 20:30 20:40 20:45 20:54 Temp 39.6 39.6 39.6 103.3 103.3 103.3 Pulse 80 80 110 83 Resp 22 B/P (MAP) 141/75 (97) Pulse Ox 100 100 100 100 11/27/18 11/27/18 11/27/18 11/27/18 20:54 20:55 21:00 21:10 Pulse 83 83 83 83 Resp 22 22 22 B/P (MAP) 146/84 Pulse Ox 100 100 100 O2 Delivery Mechanical Ventilator FiO2 40 06/17/18 06/17/18 06/17/18 06/17/18 22:40 22:45 22:57 23:00 Temp 39.0 39.0 39.0 102.2 102.2 102.2 Pulse 100 107 132 104 Resp 22 B/P (MAP) 140/64 (89) 136/53 (80) Pulse Ox 100 100 100 100 FiO2 40 06/17/18 06/17/18 06/17/18 06/17/18 23:15 23:20 23:30 23:40 Temp 38.9 38.9 38.9 38.9 102.0 102.0 102.0 102.0 Pulse 105 127 131 131 B/P (MAP) 140/63 (88) 145/61 (89) Pulse Ox 100 100 100 06/18/18 06/18/18 06/18/18 06/18/18 00:00 00:00 00:08 00:30 Temp 39.0 102.2 Pulse 104 89 99 Resp 14 14 Pulse Ox 100 100 O2 Delivery Mechanical Ventilator FiO2 40 06/18/18 06/18/18 06/18/18 06/18/18 00:40 00:45 01:00 01:15 Temp 39.1 39.1 39.2 39.2 102.4 102.4 102.6 102.6 Pulse 133 133 132 131 B/P (MAP) 145/64 (91) 146/79 (101) Pulse Ox 100 100 100 100 06/18/18 06/18/18 06/18/18 06/18/18 01:16 01:17 01:20 01:30 Temp 39.2 39.3 102.6 102.7 Pulse 132 130 132 98 Resp 22 24 B/P (MAP) 139/71 (93) Pulse Ox 100 100 100 FiO2 40 06/18/18 06/18/18 06/18/18 06/18/18 01:40 01:45 02:00 02:15 Temp 39.3 39.3 39.4 39.5 102.7 102.7 102.9 103.1 Pulse 131 130 131 131 B/P (MAP) 135/71 (92) 130/100 (110) Pulse Ox 100 100 100 100 06/18/18 06/18/18 06/18/18 06/18/18 02:20 02:25 02:30 02:40 Temp 39.5 39.6 39.7 103.1 103.3 103.5 Pulse 131 130 131 130 Resp 24 B/P (MAP) 125/56 (79) 133/81 (98) Pulse Ox 100 100 100 100 06/18/18 06/18/18 06/18/18 06/18/18 02:45 02:57 03:00 03:15 Temp 39.8 39.8 40.1 103.6 103.6 104.2 Pulse 135 130 114 119 Resp 24 B/P (MAP) 140/51 (80) Pulse Ox 100 100 100 100 FiO2 40 06/18/18 06/18/18 06/18/18 06/18/18 03:20 03:21 03:30 03:45 Temp 40.1 40.1 40.1 104.2 104.2 104.2 Pulse 124 125 113 111 Resp 14 B/P (MAP) 151/78 (102) Pulse Ox 100 100 06/18/18 06/18/18 06/18/18 06/18/18 04:00 04:00 04:01 04:02 Temp 40.0 40.0 104.0 104.0 Pulse 106 108 114 Resp 15 B/P (MAP) Pulse Ox 100 100 100 O2 Delivery Mechanical Ventilator FiO2 40 06/18/18 06/18/18 06/18/18 06/18/18 04:15 04:22 04:30 04:42 Temp 39.8 39.8 39.7 39.7 103.6 103.6 103.5 103.5 Pulse 102 109 107 107 B/P (MAP) Pulse Ox 100 100 100 100 06/18/18 06/18/18 06/18/18 06/18/18 04:45 05:00 05:02 05:05 Temp 39.7 39.6 39.6 39.6 103.5 103.3 103.3 103.3 Pulse 108 110 113 110 B/P (MAP) 142/77 (98) Pulse Ox 100 100 100 100 06/18/18 06/18/18 06/18/18 06/18/18 05:15 05:15 05:20 05:30 Temp 39.5 39.5 39.5 103.1 103.1 103.1 Pulse 110 112 107 105 Resp 20 B/P (MAP) 153/64 (93) Pulse Ox 100 100 100 100 FiO2 40 06/18/18 06/18/18 06/18/18 06/18/18 05:40 05:45 06:00 06:15 Temp 39.3 39.3 39.3 39.3 102.7 102.7 102.7 102.7 Pulse 115 119 115 110 B/P (MAP) 141/73 (95) 168/93 (118) Pulse Ox 100 100 100 100 06/18/18 06/18/18 06/18/18 06/18/18 06:21 06:30 06:40 07:35 Temp 39.3 39.4 39.5 102.7 102.9 103.1 Pulse 103 110 107 135 Resp 21 B/P (MAP) 155/83 (107) 148/73 (98) Pulse Ox 100 100 100 FiO2 40 06/18/18 06/18/18 06/18/18 06/18/18 07:44 08:00 08:02 08:45 Pulse 135 142 142 127 Resp 21 21 21 B/P (MAP) 149/80 Pulse Ox 100 100 100 O2 Delivery Mechanical Ventilator FiO2 40 Intake and Output 06/17/18 06/17/18 06/18/18 15:00 23:00 07:00 Intake Total 1631 ml 1168 ml Output Total 1000 ml 1100 ml Balance 631 ml 68 ml Laboratory Tests 06/18/18 04:16: White Blood Count 13.9H, Red Blood Count 3.49L, Hemoglobin 10.6#L, Hematocrit 34.8L, Mean Corpuscular Volume 99.7, Mean Corpuscular Hemoglobin 30.4, Mean Corpuscular Hemoglobin Concent 30.5L, Red Cell Distribution Width 16.4H, Platelet Count 193, Mean Platelet Volume 10.1, Neutrophils (%) (Auto) 92.3*H, Lymphocytes (%) (Auto) 4.1*L, Monocytes (%) (Auto) 2.9L, Neutrophils # (Auto) 12.8H, Lymphocytes # (Auto) 0.6L, Monocytes # (Auto) 0.4, Absolute Immature Granulocyte (auto 0.05, Eosinophils % 0.0, Basophils % 0.3H, Basophils # 0.0, Eosinophil Count 0.0, Sodium Level 155H, Potassium Level 2.9L, Chloride Level 118.0H, Carbon Dioxide Level 22.1, Anion Gap 17.8, Blood Urea Nitrogen 38H, Creatinine 1.43H, Estimated GFR () 58.5, BUN/Creatinine Ratio 26.0, Glucose Level 77, Calcium Level 6.4L, Magnesium Level 1.7L, Total Bilirubin 0.4, Aspartate Amino Transf (AST/SGOT) 138H, Alanine Aminotransferase (ALT/SGPT) 135H, Alkaline Phosphatase 60, Total Protein 5.5L, Albumin 2.0L, Globulin 3.5, Percent Immature Gran (Cell Imm) 0.40 Current Medications Medications (Trade) Dose Ordered Sig/Isabel PRN Reason Start Time Stop Time Status Last Admin Acetaminophen (Ofirmev) 1,000 mg Q8H PRN FEVER 06/17/18 06:30 07/17/18 06:29 06/18/18 02:33 Acetaminophen (Tylenol) 650 mg Q4HR PRN PAIN 06/17/18 06:00 07/17/18 05:59 06/18/18 08:33 Levetiracetam 500 mg/Sodium Chloride 105 ml @ 100 mls/hr Q8H 06/16/18 16:00 07/16/18 15:59 06/18/18 08:46 Lorazepam (Ativan) 2 mg Q4HR PRN AGITATION 06/15/18 20:30 07/15/18 20:29 06/15/18 20:31 Metoprolol Tartrate (Lopresser) 5 mg Q2 PRN HYPERTENSION 06/16/18 04:30 07/16/18 04:29 06/17/18 04:07 Metoprolol Tartrate (Lopresser) 25 mg BID 06/16/18 21:00 07/16/18 20:59 06/18/18 08:45 Piperacillin Sod/ Tazobactam Sod 2.25 gm/Sodium Chloride 100 ml @ 100 mls/hr Q6H 06/17/18 16:30 07/17/18 16:29 06/18/18 04:30 Potassium Chloride (Klor-Con 10) 20 meq STAT 06/15/18 14:00 07/15/18 13:59 Propofol (Diprivan) 200 mg PRN PRN SEDATION 06/15/18 20:30 07/15/18 20:29 06/16/18 19:23 General: Other (Intubated and on the ventilator. Unresponsive with normal vital signs except high fever 104) HEENT: Other (Bilateral pupils are constricted but fixed. Unresponsive to light. Cannot test accommodation) Neck: Supple, No JVD Lungs: Other (Bilateral diminished air entry in.) Heart: Regular rate, Normal S1, Normal S2 Abdomen: Normal bowel sounds, No tenderness, No hepatospenomegaly Extremities: No clubbing, No cyanosis, No edema Skin: No rashes, No breakdown Medication Reconciliation Scheduled Apixaban (Eliquis), 5 MG PO DAILY24, (Reported) Cholecalciferol (Vitamin D3) (Vitamin D), 5,000 UNIT PO Q7D, (Reported) Fluoxetine Hcl (Fluoxetine Hcl), 1 CAP PO DAILY, (Reported) Fluticasone/Salmeterol (Advair 250-50 Diskus), 1 PUFF IH BID, (Reported) Furosemide (Furosemide), 1 TAB PO PRN, (Reported) Lisinopril (Lisinopril), 1 TAB PO DAILY, (Reported) Metformin Hcl (Metformin Hcl), 1 TAB PO BID, (Reported) Metoprolol Succinate (Metoprolol Succinate), 1 TAB PO DAILY, (Reported) Oxybutynin Chloride (Oxybutynin Chloride), 1 TAB PO BID, (Reported) Pravastatin Sodium (Pravachol), 1 TAB PO HS, (Reported) Terazosin Hcl (Terazosin Hcl), 0.5 CAP PO HS, (Reported) Scheduled PRN Fluticasone Propionate (Fluticasone Propionate), 1 SPR NA HS PRN for CONGESTION, (Reported) Ipratropium [place] (Atrovent Hfa), 2 PUFF IH Q6HR PRN for SHORTNESS OF BREATH, (Reported) Assessment/Plan Assessment/Plan Plan Acute hypoxic respiratory failure requiring mechanical ventilation. 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 Initial pneumonia most likely secondary to aspiration Pulseless electrical activity after aspiration and asphyxiation Generalised twitching Vs seizures Worsening hypokalemia 2.9: Replace Worsening renal function from 1.67-1.76. now improving. AST and ALTs still elevated: Improving. Albumin still decreased to 2.5. Replace albumin. Community Acquired pneumonia likely with aspiration on admission Aspiration Pna Acute on chronic systolic CHF History of COPD Diabetes mellitus Hypoalbuminemia Mild protein calorie malnutrition Plan Leave off sedation Jose Carlos blanket for elevated temperatures. Continue when necessary for mild Repeat head CT this morning. Continue Zosyn IV hydration as required. If fever, send blood cultures. Continue Keppra twice a day. Continue Ativan when necessary Blood and Ur cx Neg so far Hyperglycemic protocol. A1C 5.8 Patient currently DNR but already intubated. GI prophylaxis DVT prophylaxis. ANA YOUNG DO Jun 18, 2018 09:09
--- NOTE | 2018-06-18 09:34 | DIREP ---
PROCEDURE:CT HEAD WITHOUT CONTRAST TECHNIQUE:Axial cuts were obtained through the head, without intravenous contrast material. The images were viewed at brain and bone settings. COMPARISON:[facility], CT, CT HEAD BRAIN W/O CONTRAST, 06/16/2018, 10:50 AM. INDICATIONS:Unresponsive FINDINGS: VENTRICLES:Normal. CEREBRUM:The exam is limited due to patient motion. Moderate diffuse atrophy is again demonstrated is well as bilateral basal ganglia lacunar infarcts. Subdural hemorrhage in the posterior fossa cannot be excluded with certainty although this appearance most likely is related to artifact. I cannot exclude subarachnoid or subdural hemorrhage in the left frontal region although this most likely represents artifact due to patient motion as well. CEREBELLUM:Normal. BRAINSTEM:Normal. SKULL:Normal. SINUSES:Normal. OTHER:Negative. CONCLUSION: 1. The exam is limited due to patient motion; subdural or subarachnoid hemorrhage cannot be excluded with absolute certainty although this appearance likely is due to motion artifact. If possible, a repeat exam when the patient is motionless would be of benefit. 2. Moderate diffuse atrophy is again noted which was demonstrated on 06/16/2018. Dictated by: Jamar Perez M.D. on 06/18/2018 at 08:25 AM
[2018-06-18] MEDS ORDERED: CALCIUM CHLORIDE IV ONE (10:03)
[2018-06-18 11:22] LABS: ABG PCO2 31.9 mmHg (35.0-45.0); ABG PH 7.434 (7.350-7.450); BE(B) -2.5 mmol/L (-2.0-2.0); HCO3act 20.9 mmol/L (22.0-26.0)
--- NOTE | 2018-06-18 13:00 | NUR ---
DR. YOUNG/WITHDRAWAL OF CARE DR. YOUNG AT BEDSIDE TALKING TO CAREGIVER/POA. ORDER RECEIVED TO EXTUBATE.
--- NOTE | 2018-06-18 13:07 | NUR ---
[employer] PATIENT DID NOT QUALIFY FOR ORGAN DONATION. CALL BACK WITH CARDIAC TO SEE IF HE QUALIFIES FOR TISSUE DONATION. DR. YOUNG NOTIFIED.
--- NOTE | 2018-06-18 13:24 | NUR ---
EXTUBATED AT THIS TIME. PATIENT PLACED ON NASAL CANULA AT 2 LITERS. AGONAL RESPIRATION NOTED. O2 SAT READING 85% TO 81%. CAREGIVER/POA AT BEDSIDE.
[2018-06-18] MEDS: NS 500ML 500 ML IV SCH ×2 (15:00→21:40)
--- NOTE | 2018-06-18 18:45 | NUR ---
RECEIVED REPORT AND PATIENT CARE ASSUMED.
[2018-06-18] MEDS: HYTRIN PO SCH (21:00)
[2018-06-18] MEDS: LIPITOR PO SCH (21:00)
--- NOTE | 2018-06-18 22:00 | NUR ---
IV SITES D/C TO RT WRIST, RT HAND AND LT FA. ORAL CARE PROVIDED. PT FACE WASHED. PT TURNED AN REPOSITIONED. WILL CONTINUE TO MONITOR.
[2018-06-19] VITALS (18 sets, daily range): BP systolic 89–123; BP diastolic 45–63
[2018-06-19] MEDS: KEPPRA IV NR (02:11)
[2018-06-19] MEDS: NS IV NR (02:11)
[2018-06-19] MEDS: OFIRMEV IV PRN (04:13)
[2018-06-19] MEDS: NS 500ML 500 ML IV SCH (04:20)
[2018-06-19] MEDS: ZOSYN 2.25GM 2.25 GM in NS 100ML 100 ML IV SCH (04:38)
--- NOTE | 2018-06-19 05:50 | NUR ---
BED BATH WITH CHG WIPES ADMINISTERED AT THIS TIME. ORAL CARE PERFORMED. PT TURNED AND REPOSITIONED.
--- NOTE | 2018-06-19 06:20 | NUR ---
PT . NO BREATH SOUNDS OR HEART RATE AUSCULTATED. NIBP UNABLE TO READ. TIME OF ANNOUNCED IN AGREEMENT WITH KVNG BARR RN. CAREGIVER AT BEDSIDE AND NOTIFIED OF PT WITH UNDERSTANDING.
--- NOTE | 2018-06-19 06:23 | NUR ---
DR YOUNG NOTIFIED OF PT .
--- NOTE | 2018-06-19 06:25 | NUR ---
DEPT CALLED TO NOTIFY KP OF PT .
--- NOTE | 2018-06-19 06:27 | NUR ---
[facility] NOTIFIED OF PT .
--- NOTE | 2018-06-19 06:30 | NUR ---
OZZY MCCRAY NOTIFIED OF PT . SPOKE WITH JAZMIN.
--- NOTE | 2018-06-19 07:07 | NUR ---
OZZY LOPEZ ON UNIT TO TRANSFER PT. PT TRANSPORTED OFF UNIT VIA STRETCHER.
--- NOTE | 2018-06-19 08:52 | PRM.DC ---
Discharge Summary Date of Discharge: Jun 19, 2018 Time of Request to Discharge: 08:48 Additional Comments History of Present Illness 73-year-old male with past medical history of chronic systolic CHF, COPD, and diabetes mellitus who lives at home but has a 24-hour information coordinator. He presented to the ER with a 2 day duration of cough and shortness of breath associated with fever and weakness. He denied any nausea or vomiting. Chest x-ray done in the ER was concerning for possible pneumonia. However patient did have a proBNP level of more than 50,000. He sounded very coarse with his breath sounds. The ER called me to admit the patient for treatment of pneumonia and possible CHF. At the time of my evaluation, the patient was already in the yoder asleep. He had received Lasix in the ER with achievement of good diuresis. He appears to feel better now. Nursing tells me that he was confused and had tried to pull out his louis. However he is calm now. His information coordinator has gone home. HOSP COURSE: This patient was admitted to the general medical floor for Community Acquired pneumonia and started on Rocephin and azithromycin. When he arrived the ER initially, he had acute on chronic systolic CHF for which he was receiving IV Lasix. His other comorbidities were all optimized from the very start. He started to improve and we were thinking of discharging the patient. However 4 days ago, the patient was eating dinner when he aspirated on his dinner. Family was present. While attempts were made to oxygenate him, he became unresponsive and was noted with PEA on the monitor. He was coded per ACLS protocol and intubated thereafter and transferred to the ICU. On the first day of ICU stay, and had generalized twitching with seizures and the patient was started on Keppra. The seizing went away. A head CT obtained the following morning did not show any acute changes. However by the second day, the patient started to mottle in his skin and was no longer breathing over the vent as much as he was doing. Recall that patient has 2 durable foster of trade mark attorney that were present during this hosp stay. Between them, they made the patient full code for intubation, but then changed his status to DNR but not DNI after he was intubated. As day #2 progressed, patient became more dependent on the ventilator. By day #3, attempt at sedation vacation and CPAP failed because of significant tachypnea. His pupils became fixed although they were pinpoint. They were unresponsive to light. He was unresponsive to painful stimulus for the rest of his stay despite no sedation. As his skin mottled more, his DURABLE FOSTER OF BINDER SELECTOR made him total DNR and DNI. Yesterday, family agreed for patient to be extubated as he would not have liked to stay on the ventilator for too long. Patient was extubated yesterday afternoon and he this morning on 06:20AM from what I was told with his friends and family around. The KP was contacted. Patient did not qualify for organ or tissue donation. 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 Acute respiratory failure requiring mechanical intubation and mechanical ventilation Community acquired pneumonia History of COPD History of CHF Patient History: Throat cancer 32 FATHER Unknown Exam/Vitals PATIENT AT 06:20AM Results(Labs/Rad) PATIENT NAME: ALEXANDRE ORTIZ MR#: [id number] : 1945 LOCATION: ICU ROOM#: ICU5 BED: A SEX: M AGE: 73 SERVICE DATE: 06/13/182139 ORDERING PHYSICIAN: ANA YOUNG DO RAD#: [id number] ACCESSION NUMBER(s): [id number] PROCEDURE: CT HEAD WO CONTRAST EXAM DATE: 06/17/181946 cc: ANA YOUNG DO; ROBERTO PEREZ MD / CC: ANA YOUNG DO; ROBERTO PEREZ MD PROCEDURE:CT HEAD WITHOUT CONTRAST TECHNIQUE:Axial cuts were obtained through the head, without intravenous contrast material. The images were viewed at brain and bone settings. COMPARISON:[facility], CT, CT HEAD BRAIN W/O CONTRAST, 06/16/2018, 10:50 AM. INDICATIONS:Unresponsive FINDINGS: VENTRICLES:Normal. CEREBRUM:The exam is limited due to patient motion. Moderate diffuse atrophy is again demonstrated is well as bilateral basal ganglia lacunar infarcts. Subdural hemorrhage in the posterior fossa cannot be excluded with certainty although this appearance most likely is related to artifact. I cannot exclude subarachnoid or subdural hemorrhage in the left frontal region although this most likely represents artifact due to patient motion as well. CEREBELLUM:Normal. BRAINSTEM:Normal. SKULL:Normal. SINUSES:Normal. OTHER:Negative. CONCLUSION: 1. The exam is limited due to patient motion; subdural or subarachnoid hemorrhage cannot be excluded with absolute certainty although this appearance likely is due to motion artifact. If possible, a repeat exam when the patient is motionless would be of benefit. 2. Moderate diffuse atrophy is again noted which was demonstrated on 06/16/2018. Dictated by: Roberto Perez M.D. on 06/18/2018 at 08:25 AM PATIENT NAME: ALEXANDRE ORTIZ MR#: [id number] : 1945 LOCATION: ICU ROOM#: ICU5 BED: A SEX: M AGE: 73 SERVICE DATE: 06/13/182139 ORDERING PHYSICIAN: ANA YOUNG DO RAD#: [id number] ACCESSION NUMBER(s): [id number] PROCEDURE: XR CHEST 1V EXAM DATE: 06/15/181840 cc: SELENA RICHARDSON MD; ANA YOUNG DO / CC: SELENA RICHARDSON MD; ANA YOUNG DO PROCEDURE:CHEST 1 VIEW COMPARISON:[facility], CR, XRAY CHEST SINGLE VW, 06/13/2018, 09:42 PM. [facility], CR, XRAY CHEST SINGLE VW, 03/28/2017, 12:57 PM. INDICATIONS:verification of NG and endotracheal tube placement FINDINGS: LUNGS/PLEURA:Trace left lower lobe patchy opacity. No focal consolidation. No pneumothorax. Mild perihilar streaky opacities. Endotracheal tube is midway between the thoracic inlet and carol. VASCULATURE:Normal. Unremarkable pulmonary vasculature. CARDIAC:Normal. No cardiac silhouette abnormality or cardiomegaly. MEDIASTINUM:Nasogastric tube tip is in the distal stomach BONES:Mild to moderate degenerative changes in the shoulders OTHER:Multiple leads noted CONCLUSION:Endotracheal tube in good position along with a nasogastric tube. Trace left lower lobe patchy opacities which appear improved when compared prior exam. No pneumothorax. Dictated by: Sonido Richardson MD on 06/15/2018 at 06:59 PM No Active Prescriptions or Reported Meds Sepsis Evaluation @ Discharge 06/18/18 00:00 Course Sepsis Screening Results: Posi: NEGATIVE Sepsis Qualifier/Stage: NO DEFINITE RISK Vitals & review Data Vital Sign - Last 24 Hours 06/18/18 06/18/18 06/18/18 06/18/18 09:00 09:15 09:38 09:40 Temp 39.3 40.5 40.7 102.7 104.9 105.3 Pulse 99 135 121 118 B/P (MAP) 149/80 (103) 141/70 (93) 140/64 (89) Pulse Ox 99 100 100 06/18/18 06/18/18 06/18/18 06/18/18 09:55 11:10 11:20 11:25 Temp 105.8 105.8 Pulse 107 113 107 105 Resp 20 14 14 14 B/P (MAP) 145/63 (90) Pulse Ox 100 100 100 99 FiO2 40 06/18/18 06/18/18 06/18/18 06/18/18 11:39 11:40 11:55 12:00 Pulse 119 119 110 Resp 18 14 14 B/P (MAP) 155/86 (109) Pulse Ox 100 100 100 O2 Delivery Mechanical Ventilator FiO2 40 06/18/18 06/18/18 06/18/18 06/18/18 12:00 12:00 12:10 12:20 Temp 104.6 104.6 Pulse 112 115 115 115 Resp 14 14 14 14 B/P (MAP) 156/91 (112) 136/78 (97) Pulse Ox 98 100 100 100 FiO2 40 06/18/18 06/18/18 06/18/18 06/18/18 12:25 12:40 12:55 13:00 Temp 103.2 103.2 Pulse 117 116 108 106 Resp 14 14 14 14 B/P (MAP) 146/58 (87) 135/87 (103) Pulse Ox 100 100 100 100 06/18/18 06/18/18 06/18/18 06/18/18 13:10 13:20 13:25 13:37 Pulse 112 107 117 119 Resp 14 14 14 18 B/P (MAP) 153/63 (93) Pulse Ox 100 98 100 100 06/18/18 06/18/18 06/18/18 06/18/18 13:40 13:55 14:00 14:15 Temp 102.6 102.6 Pulse 109 110 111 112 Resp 14 14 15 16 B/P (MAP) 143/68 (93) 140/61 (87) Pulse Ox 99 86 81 84 06/18/18 06/18/18 06/18/18 06/18/18 14:20 14:30 14:40 14:45 Pulse 111 111 112 111 Resp 16 16 17 17 B/P (MAP) 133/87 (102) 143/63 (89) Pulse Ox 82 87 86 86 06/18/18 06/18/18 06/18/18 06/18/18 15:00 15:15 15:20 15:30 Pulse 110 108 110 107 Resp 15 17 17 16 B/P (MAP) 136/59 (84) 140/58 (85) Pulse Ox 88 85 85 89 06/18/18 06/18/18 06/18/18 06/18/18 15:40 16:00 16:00 18:30 Temp 100.2 100.2 Pulse 101 98 83 Resp 17 10 15 B/P (MAP) 119/60 (79) Pulse Ox 89 81 O2 Delivery Room Air 06/18/18 06/18/18 06/18/18 06/18/18 18:40 18:45 19:00 19:15 Temp 98.7 98.7 Pulse 82 81 87 85 Resp 14 15 14 16 B/P (MAP) 80/48 (59) 86/42 (57) Pulse Ox 82 86 84 06/18/18 06/18/18 06/18/18 06/18/18 19:20 19:30 19:40 19:45 Pulse 89 89 89 99 Resp 14 14 14 12 B/P (MAP) 73/50 (58) 88/34 (52) Pulse Ox 84 84 83 06/18/18 06/18/18 06/18/18 06/18/18 20:00 20:00 20:00 20:15 Pulse 83 84 91 Resp 13 14 15 B/P (MAP) 93/54 (67) Pulse Ox 83 O2 Delivery Room Air 06/18/18 06/18/18 06/18/18 06/18/18 20:20 20:30 20:40 20:45 Pulse 89 81 92 98 Resp 14 14 16 15 B/P (MAP) 99/54 (69) 102/49 (66) Pulse Ox 82 81 83 80 06/18/18 06/18/18 06/18/18 06/18/18 21:00 21:15 21:20 21:30 Pulse 82 106 87 95 Resp 15 14 14 18 B/P (MAP) 100/47 (64) 100/51 (67) Pulse Ox 84 83 84 06/18/18 06/18/18 06/18/18 06/18/18 21:40 21:45 22:00 22:15 Pulse 100 97 84 86 Resp 18 15 18 18 B/P (MAP) 91/47 (62) 103/56 (72) Pulse Ox 84 85 84 85 06/18/18 06/18/18 06/18/18 06/18/18 22:20 22:30 22:31 22:40 Pulse 89 87 102 Resp 18 18 24 18 B/P (MAP) 109/53 (71) 99/38 (58) Pulse Ox 85 84 83 86 O2 Delivery Room Air FiO2 21 06/18/18 06/18/18 06/18/18 06/18/18 22:45 23:00 23:15 23:20 Pulse 98 93 85 91 Resp 18 18 19 20 B/P (MAP) 110/53 (72) 107/65 (79) Pulse Ox 86 84 84 11/28/18 11/28/18 11/28/18 11/29/18 23:30 23:40 23:45 00:00 Pulse 91 99 97 89 Resp 20 20 22 21 B/P (MAP) 103/50 (67) 111/52 (71) Pulse Ox 84 84 82 80 06/19/18 06/19/18 06/19/18 06/19/18 00:00 00:00 00:15 00:20 Pulse 96 91 93 Resp 19 20 21 B/P (MAP) 105/51 (69) Pulse Ox 80 79 O2 Delivery Room Air 06/19/18 06/19/18 06/19/18 06/19/18 00:30 00:35 00:40 00:50 Temp 101.4 101.4 Pulse 95 97 88 95 Resp 22 21 21 19 B/P (MAP) 100/45 (63) Pulse Ox 78 78 77 78 06/19/18 06/19/18 06/19/18 06/19/18 01:00 01:15 01:20 01:30 Pulse 87 99 91 100 Resp 21 22 22 22 B/P (MAP) 112/46 (68) 117/49 (71) Pulse Ox 74 76 75 06/19/18 06/19/18 06/19/18 06/19/18 01:41 01:45 02:00 02:15 Pulse 93 97 106 91 Resp 22 22 22 22 B/P (MAP) 116/62 (80) 123/51 (75) Pulse Ox 76 77 79 77 06/19/18 06/19/18 06/19/18 06/19/18 02:30 02:40 02:45 03:00 Pulse 89 106 101 93 Resp 22 23 21 21 B/P (MAP) 116/47 (70) 108/47 (67) Pulse Ox 78 79 80 79 06/19/18 06/19/18 06/19/18 06/19/18 03:15 03:20 03:30 03:40 Pulse 103 99 107 91 Resp 22 22 23 22 B/P (MAP) 94/45 (61) 116/56 (76) Pulse Ox 81 80 79 82 06/19/18 06/19/18 06/19/18 06/19/18 03:45 04:00 04:00 04:00 Temp 101.6 101.6 Pulse 94 93 93 Resp 21 22 23 B/P (MAP) 114/47 (69) Pulse Ox 82 79 O2 Delivery Room Air 06/19/18 06/19/18 06/19/18 06/19/18 04:15 04:30 04:40 04:45 Pulse 95 91 92 95 Resp 24 24 24 B/P (MAP) 89/51 (64) Pulse Ox 80 81 80 81 06/19/18 06/19/18 06/19/18 06/19/18 05:00 05:15 05:30 05:40 Pulse 95 97 91 86 Resp 25 26 24 B/P (MAP) 109/51 (70) 112/63 (79) Pulse Ox 81 80 77 79 06/19/18 06/19/18 06/19/18 06/19/18 05:45 06:00 06:06 06:15 Pulse 96 91 91 89 Resp 27 B/P (MAP) 103/46 (65) 117/57 (77) Pulse Ox 79 78 78 78 06/19/18 06:21 B/P (MAP) 98/48 (65) Intake and Output 06/18/18 06/18/18 06/19/18 15:00 23:00 07:00 Intake Total 1405 ml Output Total 525 ml Balance 880 ml Laboratory Tests Test 06/18/18 04:16 06/18/18 11:18 White Blood Count 13.9 10^3/uL Red Blood Count 3.49 10^6/uL Hemoglobin 10.6 g/dL Hematocrit 34.8 % Mean Corpuscular Volume 99.7 fL Mean Corpuscular Hemoglobin 30.4 pg Mean Corpuscular Hemoglobin Concent 30.5 g/dL Red Cell Distribution Width 16.4 % Platelet Count 193 10^3/uL Mean Platelet Volume 10.1 fL Neutrophils (%) (Auto) 92.3 % Lymphocytes (%) (Auto) 4.1 % Monocytes (%) (Auto) 2.9 % Neutrophils # (Auto) 12.8 10^3/uL Lymphocytes # (Auto) 0.6 10^3/uL Monocytes # (Auto) 0.4 10^3/uL Absolute Immature Granulocyte (auto 0.05 10^3 u/L Eosinophils % 0.0 % Basophils % 0.3 % Basophils # 0.0 10^3/uL Eosinophil Count 0.0 10^3/uL Sodium Level 155 mmol/L Potassium Level 2.9 mmol/L Chloride Level 118.0 mmol/L Carbon Dioxide Level 22.1 mmol/L Anion Gap 17.8 Blood Urea Nitrogen 38 mg/dL Creatinine 1.43 mg/dL Estimated GFR () 58.5 BUN/Creatinine Ratio 26.0 Glucose Level 77 mg/dL Calcium Level 6.4 mg/dL Magnesium Level 1.7 mg/dL Total Bilirubin 0.4 mg/dL Aspartate Amino Transf (AST/SGOT) 138 U/L Alanine Aminotransferase (ALT/SGPT) 135 U/L Alkaline Phosphatase 60 U/L Total Protein 5.5 g/dL Albumin 2.0 g/dL Globulin 3.5 Percent Immature Gran (Cell Imm) 0.40 % Blood Gas Sample Site RT BRACIAL ARTERY Blood Gas pH 7.434 Blood Gas PCO2 31.9 mmHg Blood Gas PO2 129.0 mmHg Blood Gas HCO3 20.9 mmol/L Blood Gas Base Excess -2.5 mmol/L Ben Test N/A Arterial Blood Oxygen Saturation 98.4 % Deoxyhemoglobin 1.6 % Carboxyhemoglobin 0.4 % Methemoglobin 0.5 % Total Hemoglobin 12.4 % Total Oxygen Concentration 17.2 % Lactic Acid (Blood Gas) 2.0 MMOL/L Blood Gas Temperature 37 Oxygen Delivery Method (LAB) VENT Blood Gas Vent Mode SIMV Blood Gas Vent Rate 14 FiO2 40 % Blood Gas Tidal Volume 500 ML Blood Gas PEEP 5 CMH2O Blood Gas Pressure Support 10 CMH2O Bicarbonate 21.9 mmol/L Current Medications Medications (Trade) Dose Ordered Sig/Isabel PRN Reason Start Time Stop Time Status Last Admin Acetaminophen (Ofirmev) 1,000 mg Q8H PRN FEVER 06/17/18 06:30 07/17/18 06:29 06/19/18 04:13 Acetaminophen (Tylenol) 650 mg Q4HR PRN PAIN 06/17/18 06:00 07/17/18 05:59 06/18/18 08:33 Levetiracetam 500 mg/Sodium Chloride 105 ml @ 100 mls/hr Q8H 06/16/18 16:00 07/16/18 15:59 06/19/18 02:11 Metoprolol Tartrate (Lopresser) 25 mg BID 06/16/18 21:00 07/16/18 20:59 06/18/18 08:45 Piperacillin Sod/ Tazobactam Sod 2.25 gm/Sodium Chloride 100 ml @ 100 mls/hr Q6H 06/17/18 16:30 07/17/18 16:29 06/19/18 04:38 Sodium Chloride 500 ml @ 75 mls/hr Q6H40M 06/18/18 15:00 07/18/18 14:59 Plan Assessment THE PATIENT AT 6:20 am ON 06/19/2018 Discharge Date: Jun 19, 2018 Dicharge DX: or did not make it Discharge Disposition: Stable ANA YOUNG DO Jun 19, 2018 08:52
== END 2018-06-19 06:20 | disposition expired | DRG 208 ==
LOC: ER 21:40 → MS 23:39 → ICU 06-15 18:40
PROVIDERS: ADMIT Internal Medicine; ATTEND Internal Medicine
PROC: 5A1945Z Respiratory Ventilation, 24-96 Consecutive Hours (ICD-10-PCS; principal; 2018-06-15)
PROC: 0BH17EZ Insertion of Endotracheal Airway into Trachea, Via Natural or Artificial Opening (ICD-10-PCS; 2018-06-15)
DX: J18.9 Pneumonia, unspecified organism (principal); A41.9 Sepsis, unspecified organism; J96.01 Acute respiratory failure with hypoxia; I50.23 Acute on chronic systolic (congestive) heart failure; R65.20 Severe sepsis without septic shock; E44.1 Mild protein-calorie malnutrition; G93.1 Anoxic brain damage, not elsewhere classified; J44.1 Chronic obstructive pulmonary disease with (acute) exacerbation; T17.820A Food in other parts of respiratory tract causing asphyxiation, initial encounter; I46.9 Cardiac arrest, cause unspecified; E88.09 Other disorders of plasma-protein metabolism, not elsewhere classified; E11.65 Type 2 diabetes mellitus with hyperglycemia; I16.0 Hypertensive urgency; E87.6 Hypokalemia; E83.42 Hypomagnesemia; E83.51 Hypocalcemia; D64.9 Anemia, unspecified; D72.810 Lymphocytopenia; R56.9 Unspecified convulsions; Z66 Do not resuscitate; T38.0X5A Adverse effect of glucocorticoids and synthetic analogues, initial encounter; Z88.2 Allergy status to sulfonamides; Z88.5 Allergy status to narcotic agent; Z87.891 Personal history of nicotine dependence; Y92.89 Other specified places as the place of occurrence of the external cause; Z68.25 Body mass index [BMI] 25.0-25.9, adult; X58.XXXA Exposure to other specified factors, initial encounter; Y92.239 Unspecified place in hospital as the place of occurrence of the external cause
CPT/HCPCS: 36415; 36600; 70450; 71045; 80048; 80053; 81000; 82550; 82803; 82948; 83036; 83735; 83880; 84484; 85025; 85610; 85730; 87040; 87086; 93005; 94002; 94003; 94640; 99285; A4338; J0131; J0171; J0360; J0456; J0696; J1100; J1815; J1940; J2060; J2543; J2920; J2930; J3475; J3490; J7030; J7040; J7050; J7620; P9047; J1953; J3480; Q0144